=== PATIENT | female | born 1940 | race Caucasian/White ===

== ENCOUNTER 2019-04-18 08:41 | Inpatient (IN) ==
[2019-04-18 09:41] LABS: BASO# 0.02 X1000 (0.0-0.2); BASO% 0.3 % (0.0-0.8); EOS# 0.06 X1000 (0.0-0.7); HEMATOCRIT 38.1 % (37.0-47.0); HEMOGLOBIN 12.1 g/dL (12.0-16.0); IMM GRAN# 0.01 X1000 (0.0-0.04); IMM GRAN% 0.2 % (0.0-0.5); LYMPH# 1.14 X1000 (1.2-3.4); LYMPH% 18.2 % (20.5-51.1); MCHC 31.8 g/dL (33-37); MCV 103.8 FL (81-99); MONO# 0.98 X1000 (0.11-0.59); MONO% 15.6 % (1.7-9.3); MPV 11.5 FL (7.4-10.4); NEUT# 4.06 X1000 (1.4-6.5); NEUT% 64.7 % (42.2-75.2); PLT 127 X1000 (130-400); RBC 3.67 XMIL (4.2-5.4); RDW 13.5 % (11.5-14.5); WBC 6.27 X1000 (4.8-10.8)
--- NOTE | 2019-04-18 09:55 | EKG Report ---
Test Performed on : 04/18/2019 09:37:46 AM Test Reason : weakness Blood Pressure : / mmHG Vent. Rate : 077 BPM Atrial Rate : 077 BPM P-R Int : 164 ms QRS Dur : 080 ms QT Int : 424 ms P-R-T Axes : 028 014 052 degrees QTc Int : 479 ms Normal sinus rhythm. Normal ECG When compared with ECG of 31-JAN-2019 11:00, No significant change was found Unconfirmed Result
[2019-04-18 10:01] LABS: AGAP 10; ALBUMIN 3.6 g/dL (3.5-5.0); ALKALINE PHOSPHATASE 77 U/L (32-104); BUN 22 mg/dL (8-22); CALCIUM 8.2 mg/dL (8.8-10.2); CHLORIDE 100 mmol/L (98-107); COSMO 285; CREATININE 0.6 mg/dL (0.5-0.9); ESTIMATED GFR > 60; GLUCOSE 100 mg/dL (70-104); GOT 13 U/L (10-30); GPT 9 U/L (10-36); POTASSIUM 3.9 mmol/L (3.5-5.1); SODIUM 141 mmol/L (136-145); TCO2 32 mmol/L (25-35); TOTAL PROTEIN 6.3 g/dL (6.3-8.3)
[2019-04-18 10:50] LABS: FREE T4 1.43 ng/dL (0.93-1.70); TSH 1.79 uIUmL (0.27-4.20)
--- NOTE | 2019-04-18 10:52 | Diag Imaging Result Doc PS360 ---
EXAM: CHEST-2 VIEWS HISTORY: sob TECHNIQUE: Chest two views COMPARISON: 03/22/2019 FINDINGS: Poor inspiratory effort. The heart is enlarged. There is a small left pleural effusion. There are basilar infiltrates. Cement within several thoracic and lumbar vertebra. IMPRESSION: Cardiomegaly with a left pleural effusion and left basilar infiltrates. Electronically signed by Phuc Moncada 04/18/2019 10:50 AM
--- NOTE | 2019-04-18 10:58 | PROVIDER DOCUMENTATION ---
HPI-General Adult - General Chief Complaint: Cold Symptoms Stated Complaint: COLD SX Time Seen by Provider: 04/18/19 09:03 Source: patient Allergies/Adverse Reactions: Patient Allergies Allergy/AdvReac Type Severity Reaction Status Date / Time tuberculin,PPD,multi-puncture Allergy ANAPHYLAXIS Verified 08/02/17 13:03 Home Medications: Home Medication List Medication Instructions Recorded Confirmed Last Taken Type Divalproex Sodium 500 mg PO BID 01/31/19 03/20/19 Unknown History Levothyroxine [Synthroid] 88 microgm PO DAILY 01/31/19 03/20/19 Unknown History Lorazepam 1 mg PO BID 01/31/19 03/20/19 Unknown History Omeprazole 20 mg PO BID 01/31/19 03/20/19 Unknown History PRAVAstatin [Pravachol] 80 mg PO DAILY 01/31/19 03/20/19 Unknown History Acetaminophen 650 mg PO Q6H PRN PRN 03/20/19 03/20/19 Unknown History Citalopram [Celexa] 20 mg PO DAILY 03/20/19 03/20/19 Unknown History Donepezil [Aricept] 5 mg PO DAILY 03/20/19 03/20/19 Unknown History Lactulose 15 ml PO DAILY 03/20/19 03/20/19 Unknown History Loratadine 10 mg PO DAILY PRN 03/20/19 03/20/19 Unknown History Memantine [Namenda] 5 mg PO BID 03/20/19 03/20/19 Unknown History Olanzapine 10 mg PO BID 03/20/19 03/20/19 Unknown History Potassium Chloride 10 meq PO DAILY 03/20/19 03/20/19 Unknown History Tolterodine Tartrate [Tolterodine 4 g PO DAILY 03/20/19 03/20/19 Unknown History Tartrate ER] Albuterol Sulfate Inhaler 2 puff INH TID #1 inhaler 03/22/19 Unknown Rx [Ventolin Hfa] Azithromycin 250 mg PO DAILY #4 tab 03/22/19 Unknown Rx Cefpodoxime Proxetil 200 mg PO BID #14 tab 03/22/19 Unknown Rx - History of Present Illness -Gen Adult Nature of Presenting Problems: [id number] presents to the ER from a retirement with generalized malaise, facial swelling , generalized swelling and SOB. The retirement workers state she has been declining all week. They do not report fever but report chills. They state the facial swelling began to occur on Sunday. They report the worsening SOB began yesterday so they took her to her primary MD. He did a chest film but no results have been reported yet. No labs were done. Location of Pain/Injury: reports: face (left side facial pain, jaw and ear pain) , chest (SOB), generalized (edema) Quality of Pain: reports: aching Severity: reports: mild Onset/Duration: reports: 1 week ago Associated Symptoms: reports: cough, fatigue, malaise, shortness of breath Similar Symptoms Previously?: No Recently seen or treated by another doctor?: Yes Review of Systems - Adult - REVIEW OF SYSTEMS - ADULT Constitutional: reports: see HPI, chills, fatique Eyes: reports: see HPI, other (left orbital edema) Ears, Nose, Mouth & Throat: reports: no symptoms reported, ear pain (left ear pain and swelling) Cardiovascular: reports: see HPI, edema (pedal edema) Respiratory: reports: see HPI, cough (dry cough), dyspnea on exertion, shortness of breath Gastrointestinal: reports: no symptoms reported. denies: abdominal pain, diarrh ea, nausea, vomiting Genitourinary: reports: no symptoms reported Musculoskeletal: reports: no symptoms reported Integumentary: reports: no symptoms reported Neurological: reports: no symptoms reported Psychiatric: reports: no symptoms reported Endocrine: reports: no symptoms reported Hematologic/Lymphatic: reports: no symptoms reported Allergic/Immunologic: reports: no symptoms reported All Other Systems: Reviewed and Negative Past History - Adult - PAST MEDICAL HISTORY-ADULT Review of Records: reports: Old Records Reviewed, Nursing Assessment Review, Medications Reviewed, Social history reviewed & non-contributory. Major Childhood Illnesses: reports: denies history Cardiovascular: reports: HTN Respiratory: reports: denies history Gastrointestinal: reports: denies history Obstetrical/Gynecological: reports: denies history Genitourinary: reports: dialysis Musculoskeletal: reports: denies history Neurological: reports: Seizures/Epilepsy Psychiatric: reports: bipolar Endocrine/Immune: reports: thyroid disorder Other Conditions: reports: denies history - PRIOR SURGERIES/PROCEDURES Surgical/Procedure History: reports: reviewed, not pertinent - IMMUNIZATION STATUS Childhood Immunizations: See Nurse Assessment Flu Vaccine: See Nurse Assessment - FAMILY HISTORY Family History: reviewed, not pertinent - SOCIAL HISTORY Smoking: denies Substance Use: denies Living Situation: care facility Physical Exam-General - PHYSICAL EXAM-ADULT Initial Vital Signs Reviewed: Yes - CONSTITUTIONAL General Appearance: mild distress, lethargic - EYES Eyes: PERRL/EOMI, other (left orbital edema) - HEAD, EARS, NOSE, MOUTH & THROAT HENMT: normocephalic/atraumatic, moist mucous membranes, dental decay (dental abscess to the lower left molar), maxillary tenderness, other (left auricular edema, otitis externa,) - RESPIRATORY Respiratory: chest non-tender, decreased breath sounds - CARDIOVASCULAR Cardiovascular: normal peripheral pulses, regular rate, rhythm, other (peripheral edema +2). negative: JVD - GASTROINTESTINAL (ABDOMEN) Abdominal Exam: normal bowel sounds, non tender, distended - LYMPHATIC Lymphatic: no adenopathy - MUSCULOSKELETAL Back Exam: normal inspection, no CVA tenderness Extremity: normal range of motion, non-tender, normal gait Peripheral Pulses: radial (R): 2+, radial (L): 2+, dorsalis-pedis (R): 2+, dorsalis-pedis (L): 2+ - SKIN Integumentary: normal color, normal turgor, warm/dry, other (multiple mosquito bite to the face, retirement employees report an outing to the swap 2 days ago) - NEUROLOGIC Neurologic: negative: facial droop, motor weakness - PSYCHIATRIC Psych/Mental Status: normal mood/affect Progress - PLAN OF CARE/RESULTS Progress/Plan/Lab Results: Vital Signs - 8 hr 04/18/19 08:47 Temperature 98.4 F Pulse Rate 81 Respiratory Rate 18 Blood Pressure 112/71 O2 Sat by Pulse Oximetry 93 L Laboratory Results - last 24 hr 04/18/19 04/18/19 04/18/19 09:30 09:30 09:30 WBC 6.27 RBC 3.67 L Hgb 12.1 Hct 38.1 MCV 103.8 H MCH 33.0 H MCHC 31.8 L RDW Std Deviation 13.5 Plt Count 127 L MPV 11.5 H Immature Gran % (Auto) 0.2 Neut % (Auto) 64.7 Lymph % (Auto) 18.2 L Kent % (Auto) 15.6 H Eos % (Auto) 1.0 Baso % (Auto) 0.3 Immature Gran # (Auto) 0.01 Neut # (Auto) 4.06 Lymph # (Auto) 1.14 L Kent # (Auto) 0.98 H Eos # (Auto) 0.06 Baso # (Auto) 0.02 Sodium 141 Potassium 3.9 Chloride 100 Carbon Dioxide 32 Anion Gap 10 BUN 22 Creatinine 0.6 Estimated GFR/1.73 m2 > 60 BUN/Creatinine Ratio 37 Glucose 100 Calculated Osmolality 285 Calcium 8.2 L Phosphorus 4.4 Magnesium Total Bilirubin 0.30 AST 13 ALT 9 L Alkaline Phosphatase 77 Creatine Kinase Troponin T Egk-N-Fohsaugszln Pept Total Protein 6.3 Albumin 3.6 Globulin 3.0 Albumin/Globulin Ratio 1.0 TSH Free T4 04/18/19 04/18/19 04/18/19 09:30 09:30 09:30 WBC RBC Hgb Hct MCV MCH MCHC RDW Std Deviation Plt Count MPV Immature Gran % (Auto) Neut % (Auto) Lymph % (Auto) Kent % (Auto) Eos % (Auto) Baso % (Auto) Immature Gran # (Auto) Neut # (Auto) Lymph # (Auto) Kent # (Auto) Eos # (Auto) Baso # (Auto) Sodium Potassium Chloride Carbon Dioxide Anion Gap BUN Creatinine Estimated GFR/1.73 m2 BUN/Creatinine Ratio Glucose Calculated Osmolality Calcium Phosphorus Magnesium Total Bilirubin AST ALT Alkaline Phosphatase Creatine Kinase 42 Troponin T < 0.010 Pmz-[id number]-Hhwmqnjwkgs Pept 191 Total Protein Albumin Globulin Albumin/Globulin Ratio TSH Free T4 04/18/19 04/18/19 09:30 09:30 WBC RBC Hgb Hct MCV MCH MCHC RDW Std Deviation Plt Count MPV Immature Gran % (Auto) Neut % (Auto) Lymph % (Auto) Kent % (Auto) Eos % (Auto) Baso % (Auto) Immature Gran # (Auto) Neut # (Auto) Lymph # (Auto) Kent # (Auto) Eos # (Auto) Baso # (Auto) Sodium Potassium Chloride Carbon Dioxide Anion Gap BUN Creatinine Estimated GFR/1.73 m2 BUN/Creatinine Ratio Glucose Calculated Osmolality Calcium Phosphorus Magnesium 2.0 Total Bilirubin AST ALT Alkaline Phosphatase Creatine Kinase Troponin T [id number]-Stntgcbnzcz Pept Total Protein Albumin Globulin Albumin/Globulin Ratio TSH 1.79 Free T4 1.43 Orders Category Date Time Status Use ED:PneumoniaAdultSet As Ordered Care 04/18/19 09:20 Active CHEST-2 VIEWS [RAD] Stat Exams 04/18/19 10:14 Completed BLOOD CULTURE [BLDCUL] Stat Lab 04/18/19 09:21 Ordered CBC WITH ELECTRONIC DIFF [HEME] Stat Lab 04/18/19 09:30 Completed CK PROFILE [SP CHEM] Stat Lab 04/18/19 09:30 Completed COMPREHENSIVE METABOLIC PANEL [CHEM] Stat Lab 04/18/19 09:30 Completed FREE T4 Stat Lab 04/18/19 09:30 Completed MAGNESIUM [CHEM] Stat Lab 04/18/19 09:30 Completed PHOSPHORUS [CHEM] Stat Lab 04/18/19 09:30 Completed PRO B-NATRIURETIC PEPTIDE Stat Lab 04/18/19 09:30 Completed TROPONIN T Stat Lab 04/18/19 09:30 Completed TSH Stat Lab 04/18/19 09:30 Completed Generalized Adult Illness >60 Stat Oth 04/18/19 09:20 Ordered Pneumonia (suspected) Stat Oth 04/18/19 09:20 Ordered EKG [EKG] Stat Ther 04/18/19 09:20 Draft Result Diagrams: 04/18/19 09:30 04/18/19 09:30 - EKG 1 Time of EKG reading by physician:: 09:37 EKG Read and Signed by:: Moshe Palma EKG Interpretation (*Must complete 3 of following elements*): Normal Rate: 77 Rhythm: NSR Breeden: normal QRS: normal NE Interval: normal ST Wave: normal - CONSULTS/PCP/HOSPITALIST Notification #1 *Consult/PCP/Hospitalist*: Dr White Time Discussed: 11:08 Reason/Comments: Pneumonia, pulmonary edema, dental abscess Consult Disposition: Admit Departure - Departure Date of Disposition Decision: 04/18/19 Time of Disposition Decision: 11:09 DIAGNOSIS: Abscess, dental, Facial cellulitis LLL pneumonia Qualifiers: Pneumonia type: due to unspecified organism Qualified Code(s): J18.1 - Lobar pneumonia, unspecified organism Disposition: ADMITTED INPATIENT 09 Certified Medical Emergency: Emergent Condition: Critical Additional Freetext Instructions: ED Follow Up Instructions: You have been treated by a care provider in the Emergency Department. These instructions are being provided to you so you can have an understanding of how to care for yourself upon discharge. Upon discharge from the Emergency Department, you are responsible for making arrangements for follow-up care by a physician of your choice. Take all prescribed medications as directed. Return to the Emergency Department immediately for any new or worsening symptoms. You may call the Physician Referral phone number at [phone] to obtain a list of Physicians who are taking new patients. Referrals and Follow-Ups: Richmond Gonzalez MD [Primary Care Provider] - - Critical Care Note This patient required my direct & personal management of CC.: No Attestation - Physician/ BRENNA Attestation Patient care was provided by Advanced Practice Provider:: Yes Advanced Practice Provider:: Mal Schwartz Advanced Practice Provider documentation review:: The Mid-level provider documentation, treatment plan and medical decision making was reviewed by the physician who agrees with all treatment and medical decision making by the MLP. The physician spent face to face time with patient:: Yes (Dr Palma) Advanced Practice Provider documentation review:: Supervising physician onsite and consulted in the evaluation and care of this patient. The physician did have a face to face encounter with the patient.
[2019-04-18] MEDS ORDERED: ZOFRAN IV PRN (13:45)
[2019-04-18] MEDS ORDERED: TYLENOL PO PRN (13:45)
[2019-04-18] MEDS: LEVAQUIN 750 MG/D5W 750 MG/150 ML IVPB IV SCH (15:21)
[2019-04-18] MEDS: NS 1,000 ML IV SCH (15:21)
[2019-04-18] MEDS: DOXYCYCLINE 100 MG in NS 250 ML IV SCH (17:24)
--- NOTE | 2019-04-18 17:44 | HISTORY AND PHYSICAL ---
PRIMARY CARE PHYSICIAN: Dr. Gonzalez. CHIEF COMPLAINT: Shortness of breath, facial swelling, and generalized malaise that began Sunday and has progressively worsened. HISTORY OF PRESENTING ILLNESS: This is a 78-year-old female, who presents to [facility] ER from [facility] alf where she has been noted since Sunday to be having generalized malaise, facial swelling, shortness of breath, chills. She was seen at her primary care physician's office yesterday. They did a chest x-ray, but the results had not been reported, and no labs had been done. She was found to have left orbital edema and a dental abscess to the left lower molar with maxillary tenderness, some left auricular edema and otitis externa. She had peripheral edema x2. Her laboratory data was unremarkable. We did a chest x- ray that showed cardiomegaly with a left pleural effusion and left basilar infiltrate, and so she is being admitted for further evaluation and treatment. PAST MEDICAL HISTORY: Bipolar, dementia in the setting of intellectual disability, hyperlipidemia, hypothyroidism, and unstable bladder. PAST SURGICAL HISTORY: Hernia repair. FAMILY HISTORY: Reviewed and noncontributory. SOCIAL HISTORY: She currently resides at a alf. No tobacco, alcohol, or illicit drug use noted. ALLERGIES: Tuberculin PPD and multipuncture. HOME MEDICATIONS: A current list will need to be obtained, reconciled, reviewed, and restarted as appropriate. We will place an order for Nursing to update and confirm home medications. DIAGNOSTIC STUDIES: Laboratory data showed a white blood cell count of 6.27, hemoglobin 12.1, hematocrit 38.1, platelets 127,000. Sodium 141, potassium 3.9, chloride 100, CO2 of 32, BUN of 22, creatinine 0.6, glucose of 100. Magnesium 2.0. Phosphorus 4.4. Cardiac enzyme was negative. ProBNP of 191. TSH of 1.79, free T4 of 1.43. EKG showed normal sinus rhythm at 77. Chest x-ray: Cardiomegaly with a left pleural effusion and left basilar infiltrate. REVIEW OF SYSTEMS: She denied any fever. She has had some chills, malaise, facial swelling with left orbital edema, shortness of breath. Denied any chest pain. She has also had a nonproductive cough. Denied any abdominal pain, constipation, diarrhea, or burning or hurting with urination. PHYSICAL EXAMINATION: VITAL SIGNS: On arrival she had a temperature of 98.4 degrees, pulse of 81, respirations 18, blood pressure 112/71, saturating 93% on 2 L. GENERAL: This is a 78-year-old female, who is lying in the bed. shelter staff is at the bedside to help answer questions and review ER record. HEMNT: Patient is noted to have left orbital edema, a dental abscess to the left lower molar, maxillary tenderness, left auricular edema and otitis externa. NECK: Normal inspection. Normal range of motion. LUNGS: With decreased breath sounds bilaterally. Equal lung expansion with chest wall movement. HEART: Regular rate and rhythm. No murmurs, rubs, or gallops. Is also noted to have some peripheral edema that is +2. ABDOMEN: Soft, nontender, nondistended. Bowel sounds are present x4 quadrants. MUSCULOSKELETAL: She has 5/5 strength x4 extremities. NEUROLOGICAL: The cranial nerves 2-12 are grossly intact. ASSESSMENT: 1. Left lower lobe pneumonia. 2. Facial cellulitis. 3. A dental abscess. 4. Dementia in the setting of intellectual disability. PLAN: She has been admitted to the medical unit. Placed on O2 and incentive spirometry. We will update and confirm home medications. Place on a regular diet. Place her on doxycycline 100 mg IV q.12 h., Levaquin 750 mg IV q.24 h., normal saline at 75. We will recheck a CBC, BMP in the a.m. and collect a sputum culture, and her blood cultures are pending. Further orders after seen by attending. Dictated by RASHAAD Carbajal for Jean White MD cc: RASHAAD Carbajal MD Dr. Thomas
--- NOTE | 2019-04-18 21:53 | HISTORY AND PHYSICAL ---
ADDENDUM: Patient seen and examined by myself. Full note dictated and discussed with nurse practitioner. The patient is a 78-year-old female who has intellectual impairment, known history of seizures, bipolar, and lives in a alf. I am going to admit her to the hospital, place her on antibiotics for pneumonia. We will attempt to do incentive spirometry if she is able to tolerate this, and we will follow. Further orders as needed. cc: Jean White MD
[2019-04-19] MEDS: DOXYCYCLINE 100 MG in NS 250 ML IV SCH ×2 (05:31→17:49)
[2019-04-19 06:55] LABS: AGAP 11; ALBUMIN 3.4 g/dL (3.5-5.0); ALKALINE PHOSPHATASE 74 U/L (32-104); BUN 17 mg/dL (8-22); CALCIUM 8.7 mg/dL (8.8-10.2); CHLORIDE 101 mmol/L (98-107); COSMO 278; CREATININE 0.5 mg/dL (0.5-0.9); ESTIMATED GFR > 60; GLUCOSE 81 mg/dL (70-104); GOT 19 U/L (10-30); GPT 8 U/L (10-36); POTASSIUM 4.6 mmol/L (3.5-5.1); SODIUM 139 mmol/L (136-145); TCO2 27 mmol/L (25-35); TOTAL PROTEIN 6.4 g/dL (6.3-8.3)
[2019-04-19 08:04] LABS: HEMATOCRIT 40.6 % (37.0-47.0); HEMOGLOBIN 13.4 g/dL (12.0-16.0); MCH 33.7 PG (27-31); MPV 11.8 FL (7.4-10.4); RBC 3.98 XMIL (4.2-5.4); RDW 13.4 % (11.5-14.5); WBC 6.09 X1000 (4.8-10.8)
[2019-04-19] MEDS ORDERED: CLARITIN PO PRN (11:19)
[2019-04-19] MEDS ORDERED: TYLENOL PO PRN (11:19)
[2019-04-19] MEDS: LACTULOSE PO SCH (12:16)
[2019-04-19] MEDS: ZYPREXA PO SCH ×2 (12:17→20:48)
[2019-04-19] MEDS: PRILOSEC PO SCH ×2 (12:17→20:48)
[2019-04-19] MEDS: SYNTHROID PO SCH (12:17)
[2019-04-19] MEDS: NS 1,000 ML IV SCH ×2 (12:17→17:48)
[2019-04-19] MEDS: ARICEPT PO SCH (12:17)
[2019-04-19] MEDS: DEPAKOTE SPRINKLE PO SCH ×2 (12:17→20:47)
[2019-04-19] MEDS: LEVAQUIN 750 MG/D5W 750 MG/150 ML IVPB IV SCH (14:59)
--- NOTE | 2019-04-19 18:15 | PROGRESS NOTE ---
DATE: 04/19/2019 SUBJECTIVE: The patient is calm. She is awake. She is in no distress. OBJECTIVE: Temperature 97.7 degrees, pulse 58, respiratory 18, BP 156/79.General: The patient is awake. She is in no distress. HEENT: Normocephalic. Neck supple. Cardiovascular: Regular rate. Chest: Decreased breath sounds bilaterally but equal. Effort appears to have a large part in this. Abdomen soft, obese, nondistended. Extremities: Moves all extremities. ASSESSMENT: 1. Left lower lobe pneumonia. 2. Facial cellulitis. 3. Dental abscess. 4. Dementia in the setting of intellectual disability. PLAN: We will continue the patient in the hospital, continue antibiotics, symptomatic control. Further orders as needed. cc: Jean White MD
[2019-04-19] MEDS: ATIVAN PO SCH (20:47)
[2019-04-19] MEDS: NAMENDA PO SCH (20:48)
[2019-04-19] MEDS: PRAVACHOL PO SCH (20:48)
[2019-04-20] MEDS: PRILOSEC PO SCH ×2 (06:09→21:45)
[2019-04-20] MEDS: DOXYCYCLINE 100 MG in NS 250 ML IV SCH ×2 (06:09→17:31)
[2019-04-20] MEDS: SYNTHROID PO SCH (06:09)
[2019-04-20] MEDS: NS 1,000 ML IV SCH ×2 (06:09→21:46)
[2019-04-20] MEDS: NAMENDA PO SCH ×2 (09:43→21:43)
[2019-04-20] MEDS: ARICEPT PO SCH (09:43)
[2019-04-20] MEDS: KLOR-CON PO SCH (09:43)
[2019-04-20] MEDS: CELEXA PO SCH (09:43)
[2019-04-20] MEDS: LACTULOSE PO SCH (09:43)
[2019-04-20] MEDS: ATIVAN PO SCH ×2 (09:43→21:43)
[2019-04-20] MEDS: DETROL LA PO SCH (09:43)
[2019-04-20] MEDS: DEPAKOTE SPRINKLE PO SCH ×2 (09:44→21:45)
[2019-04-20] MEDS: ZYPREXA PO SCH ×2 (09:44→21:44)
[2019-04-20 14:37] LABS: BILIRUBIN URINE NEGATIVE (NEGATIVE); BLOOD URINE TRACE (NEGATIVE); GLUCOSE URINE NEGATIVE (NEGATIVE); KETONE URINE NEGATIVE (NEGATIVE); LEUKOCYTES URINE NEGATIVE (NEGATIVE); NITRITE URINE NEGATIVE (NEGATIVE); PH URINE 6.5; PROTEIN URINE NEGATIVE (NEGATIVE); SP GRAVITY URINE 1.005; UROBILINOGEN URINE NORMAL
[2019-04-20 14:38] LABS: CLARITY CLEAR (CLEAR); COLOR YELLOW
[2019-04-20 15:00] LABS: URINE BACTERIA 1+ /HFP; URINE CAST NONE SEEN /LPF; URINE CRYSTAL NONE SEEN /HPF; URINE EPITHELIAL CELLS <10 /HPF (<10); URINE RBC <10 /HPF (<10); URINE WBC <10 /HPF (<10); URINE YEAST NONE SEEN /HPF
[2019-04-20 15:01] LABS: URINE SOURCE CATH
[2019-04-20] MEDS: LEVAQUIN 750 MG/D5W 750 MG/150 ML IVPB IV SCH (15:33)
--- NOTE | 2019-04-20 15:38 | PROGRESS NOTE ---
DATE: 04/20/2019 SUBJECTIVE: Patient appears to be feeling better. The staff deny any new complaints or problems. OBJECTIVE: Vital signs: Temperature 98, pulse 76 to 126 when she was agitated, respiratory 20, BP 125/90. General: Patient is in no current respiratory distress. She is sitting in bed. She is preparing to eat breakfast. HEENT: Normocephalic. Neck: Supple. Cardiovascular: Regular rate. Chest: Clear. Abdomen: Soft. Extremities: Moves all extremities. ASSESSMENT: 1. Left lower lobe pneumonia. 2. Facial cellulitis with dental abscess. 3. Dementia in the setting of intellectual disabilities. PLAN: We will continue supportive care. Continue antibiotics. We will recheck chest x-ray in the a.m. Hopefully home over the next 2 or 3days. cc: Jean White MD MTDD
[2019-04-20] MEDS ORDERED: BLISTEX MEDICATED BERRY LIP BALM TOP PRN (20:57)
[2019-04-20] MEDS: PRAVACHOL PO SCH (21:43)
[2019-04-21] MEDS: DOXYCYCLINE 100 MG in NS 250 ML IV SCH (04:20)
[2019-04-21] MEDS: PRILOSEC PO SCH ×2 (06:21→21:01)
[2019-04-21] MEDS: SYNTHROID PO SCH (06:21)
--- NOTE | 2019-04-21 08:12 | Diag Imaging Result Doc PS360 ---
EXAM: CHEST-PORTABLE HISTORY: hypoxia TECHNIQUE: Chest single view COMPARISON: 04/18/2019 FINDINGS: Poor inspiratory effort. Interval decrease in the size of the left effusion. Basilar infiltrates and atelectasis are less pronounced. The heart remains mildly prominent. IMPRESSION: Mild interval improvement. Electronically signed by Phuc Moncada 04/21/2019 8:10 AM
[2019-04-21] MEDS: CELEXA PO SCH (09:30)
[2019-04-21] MEDS: ARICEPT PO SCH (09:30)
[2019-04-21] MEDS: NAMENDA PO SCH ×2 (09:30→21:00)
[2019-04-21] MEDS: ATIVAN PO SCH ×2 (09:30→21:01)
[2019-04-21] MEDS: DEPAKOTE SPRINKLE PO SCH ×2 (09:31→21:00)
[2019-04-21] MEDS: LACTULOSE PO SCH (09:31)
[2019-04-21] MEDS: ZYPREXA PO SCH ×2 (09:31→21:00)
[2019-04-21] MEDS: KLOR-CON PO SCH (09:31)
[2019-04-21] MEDS: DETROL LA PO SCH (09:31)
[2019-04-21] MEDS: NS 1,000 ML IV SCH (12:30)
[2019-04-21] MEDS: LEVAQUIN 750 MG/D5W 750 MG/150 ML IVPB IV SCH (16:56)
--- NOTE | 2019-04-21 19:08 | PROGRESS NOTE ---
DATE: 04/21/2019 SUBJECTIVE: Patient is nonverbal. The staff notes that she appears to be doing a little bit better. OBJECTIVE: PHYSICAL EXAMINATION: Vital signs: Temperature 98, pulse 76 to 120s, BP stable. General: Patient is awake, alert. She is in no current distress. HEENT: Normocephalic. Neck: Supple. Cardiovascular: Regular rate. Chest: Appears clear although poor effort. Abdomen: Soft, nondistended. Extremities: Moves all extremities. ASSESSMENT: 1. Left lower lobe pneumonia. Her chest x-ray today appears to be slightly improved. Clinically, she appears to be for improving. 2. Dental abscess. 3. Dementia with intellectual disability. PLAN: We are going to attempt to change her to p.o. doxycycline today and hopefully p.o. Levaquin tomorrow. Expect her to be in the hospital 2 more days. Given her intellectual disability, it is difficult to get any subjective data from her. cc: Jean White MD
[2019-04-21] MEDS: DOXYCYCLINE PO SCH (19:42)
[2019-04-21] MEDS: PRAVACHOL PO SCH (21:00)
[2019-04-22] MEDS: NS 1,000 ML IV SCH (03:12)
[2019-04-22] MEDS: PRILOSEC PO SCH ×2 (06:10→20:11)
[2019-04-22] MEDS: SYNTHROID PO SCH (06:10)
[2019-04-22 06:54] LABS: MCH 33.6 PG (27-31); MCHC 33.3 g/dL (33-37); MCV 100.8 FL (81-99); MPV 11.5 FL (7.4-10.4); RBC 3.87 XMIL (4.2-5.4); RDW 13.1 % (11.5-14.5); WBC 7.4 X1000 (4.8-10.8)
[2019-04-22 07:12] LABS: AGAP 9; ALBUMIN 3.6 g/dL (3.5-5.0); ALKALINE PHOSPHATASE 68 U/L (32-104); BUN 12 mg/dL (8-22); CALCIUM 8.6 mg/dL (8.8-10.2); CHLORIDE 101 mmol/L (98-107); COSMO 283; CREATININE 0.5 mg/dL (0.5-0.9); ESTIMATED GFR > 60; GLUCOSE 98 mg/dL (70-104); GOT 19 U/L (10-30); GPT 11 U/L (10-36); POTASSIUM 3.8 mmol/L (3.5-5.1); SODIUM 142 mmol/L (136-145); TCO2 33 mmol/L (25-35); TOTAL PROTEIN 6.6 g/dL (6.3-8.3)
[2019-04-22] MEDS: ARICEPT PO SCH (08:17)
[2019-04-22] MEDS: CELEXA PO SCH (08:17)
[2019-04-22] MEDS: DOXYCYCLINE PO SCH ×2 (08:17→20:11)
[2019-04-22] MEDS: ATIVAN PO SCH ×2 (08:17→20:11)
[2019-04-22] MEDS: NAMENDA PO SCH ×2 (08:17→20:10)
[2019-04-22] MEDS: LEVAQUIN PO SCH (08:17)
[2019-04-22] MEDS: LACTULOSE PO SCH (08:17)
[2019-04-22] MEDS: DETROL LA PO SCH (08:17)
[2019-04-22] MEDS: ZYPREXA PO SCH ×2 (08:17→20:11)
[2019-04-22] MEDS: KLOR-CON PO SCH (08:18)
[2019-04-22] MEDS: DEPAKOTE SPRINKLE PO SCH ×2 (08:18→20:11)
--- NOTE | 2019-04-22 15:45 | PROGRESS NOTE ---
DATE: 04/22/2019 SUBJECTIVE: The patient's IV came out earlier this morning. She clearly does not want an IV restarted. She has become somewhat violent when we have attempted to restart it. The staff denies any knowledge of fevers. Notes her cough is improved. Denies any knowledge of shortness of breath. PHYSICAL EXAMINATION: Vital Signs: Reviewed. Temperature 97.4 degrees, pulse 65, and BP 179/71. General: Patient is currently calm and pleasant. She is in no current respiratory distress. HEENT: Normocephalic. Neck: Supple. Cardiovascular: Regular rate. Chest: Clear. Abdomen: Soft. ASSESSMENT: 1. Left lower lobe pneumonia. A recent chest x-ray is improved. We are going to change her to p.o. doxycycline and p.o. Levaquin today. 2. Dental abscess appears improved. 3. Dementia with severe intellectual disability. PLAN: We will continue patient in the hospital. Continue to follow. Hopefully, she can discharge back to [facility] tomorrow. cc: Jean White MD
[2019-04-22] MEDS: PRAVACHOL PO SCH (20:10)
[2019-04-23] MEDS: PRILOSEC PO SCH ×2 (06:32→20:07)
[2019-04-23] MEDS: SYNTHROID PO SCH (06:33)
[2019-04-23] MEDS: ARICEPT PO SCH (08:46)
[2019-04-23] MEDS: LACTULOSE PO SCH (08:46)
[2019-04-23] MEDS: DETROL LA PO SCH (08:46)
[2019-04-23] MEDS: DEPAKOTE SPRINKLE PO SCH ×2 (08:46→20:07)
[2019-04-23] MEDS: ZYPREXA PO SCH ×2 (08:46→20:07)
[2019-04-23] MEDS: KLOR-CON PO SCH (08:46)
[2019-04-23] MEDS: LEVAQUIN PO SCH (08:46)
[2019-04-23] MEDS: CELEXA PO SCH (08:46)
[2019-04-23] MEDS: ATIVAN PO SCH ×2 (08:46→20:08)
[2019-04-23] MEDS: NAMENDA PO SCH ×2 (08:46→20:07)
[2019-04-23] MEDS: DOXYCYCLINE PO SCH ×2 (08:46→20:07)
--- NOTE | 2019-04-23 12:05 | Diag Imaging Result Doc PS360 ---
CHEST-PORTABLE - 04/23/2019 INDICATION: PNA COMPARISON: 04/21/2019 FINDINGS: Lung volumes remain low. Heart size is top normal. There is some persistent patchy infiltrate or atelectasis in the left lung base. No new infiltrates. IMPRESSION: No change from prior. Electronically signed by Antonio Fraser 04/23/2019 12:03 PM
--- NOTE | 2019-04-23 14:19 | DISCHARGE SUMMARY ---
ADMISSION DATE: 04/18/2019 DISCHARGE DATE: 04/23/2019 DIAGNOSES: 1. Left lower lobe pneumonia. 2. Dental abscess, appears improved. 3. Dementia with severe intellectual disability. 4. Hypothyroid. DIAGNOSTICS: 1. 04/18/2019, chest x-ray revealed cardiomegaly with a left pleural effusion and left basilar infiltrate. 2. 04/21/2019, chest x-ray reveals interval decrease in the size of the left effusion, basilar infiltrates and atelectasis are less pronounced. The heart remains mildly prominent. 3. Chest x-ray 04/23/2019 reveals heart size is top-normal. There is some persistent patchy infiltrate or atelectasis in the left lung base. No new infiltrate. MICROBIOLOGY: Blood cultures x2 revealed no growth after 48 hours. HOSPITAL COURSE: Ms. Raymundo presented to the emergency room with shortness of breath as well as facial swelling. She was found to have left lower lobe pneumonia as well as a dental abscess. Blood cultures were drawn, which ultimately returned no growth. She was initially placed on doxycycline and Levaquin for antibiotic coverage and will be discharged on both oral medications. Chest x-ray has improved. She has remained afebrile and thankfully is ready for discharge. DISCHARGE PHYSICAL EXAM: Vital Signs: Blood pressure is 119/61 with heart rate of 66, respirations 18, temperature 98.3 degrees with O2 saturations 96 to 98% on 2 L nasal cannula. Cardiovascular: Regular rate and rhythm. S1 and S2 appreciated. She has no lower extremity edema. Peripheral pulses are palpable x4 extremities. Pulmonary: Breath sounds are clear with no increased work of breathing noted. Chest rises and falls, symmetrical respiration. Gastrointestinal: Abdomen soft, nondistended with bowel sounds in all 4 quadrants. Skin: Warm and dry. Neurologic: She is alert. Unable to assess her orientation. DISCHARGE MEDICATIONS: 1. Levaquin 500 mg p.o. daily x5 days. 2. Doxycycline 100 mg p.o. b.i.d. x5 days. 3. Tolterodine tartrate 4 mg p.o. daily. 4. Levothyroxine 88 mcg p.o. daily. 5. Pravachol 80 mg p.o. daily. 6. Potassium chloride 10 mEq daily. 7. Omeprazole 20 mg b.i.d. 8. Olanzapine 10 mg p.o. b.i.d. 9. Namenda 5 mg p.o. b.i.d. 10. Lorazepam 1 mg p.o. b.i.d. 11. Loratadine 10 mg p.o. daily. 12. Lactulose 50 mL p.o. daily. 13. Depakote 500 mg p.o. b.i.d. 14. Celexa 20 mg p.o. daily. 15. Aricept 5 mg p.o. daily. FOLLOW UP: Dr. Richmond Gonzalez in 2 weeks. She is to call to be seen sooner or return to the ER for chest pain, syncope, dizziness, any increasing shortness of breath, temperature greater than 101, productive cough, any nausea, vomiting, diarrhea, constipation, black or bloody vomitus or stools or any hematuria, dysuria, frequency, urgency, or for any questions or concerns. She is being discharged home in stable condition. TIME SPENT: This is a greater than 30 minute discharge. cc: Jean White MD
--- NOTE | 2019-04-23 19:16 | PROGRESS NOTE ---
DATE: 04/23/2019 SUBJECTIVE: Patient without new complaints. OBJECTIVE: Vital signs reviewed. Temperature 97.4 degrees, pulse 65, BP 145 to 180 systolic. General: The patient is awake. She is in no distress. HEENT: Normocephalic. Neck is supple. CV: Regular rate. Chest clear. No crackles. No wheezing. Good air movement. Abdomen soft, nondistended. Extremities: Moves all extremities. ASSESSMENT: 1. Pneumonia, improved. X-ray is improving. She is currently on p.o. antibiotics. 2. History of dental abscess. 3. Dementia in the setting of severe intellectual disability. PLAN: The patient currently is stable medically and can transition back to the halfway. She will continue antibiotics for 5 more days. cc: Jean White MD
[2019-04-23] MEDS: PRAVACHOL PO SCH (20:08)
[2019-04-24] MEDS: SYNTHROID PO SCH ×2 (05:30→06:54)
[2019-04-24] MEDS: PRILOSEC PO SCH ×2 (06:55→20:56)
[2019-04-24] MEDS: DETROL LA PO SCH (11:05)
[2019-04-24] MEDS: LEVAQUIN PO SCH (11:05)
[2019-04-24] MEDS: DOXYCYCLINE PO SCH ×2 (11:06→20:58)
[2019-04-24] MEDS: ATIVAN PO SCH ×2 (11:06→20:57)
[2019-04-24] MEDS: DEPAKOTE SPRINKLE PO SCH ×2 (11:06→20:55)
[2019-04-24] MEDS: LACTULOSE PO SCH (11:07)
[2019-04-24] MEDS: CELEXA PO SCH (11:07)
[2019-04-24] MEDS: NAMENDA PO SCH ×2 (11:07→20:57)
[2019-04-24] MEDS: KLOR-CON PO SCH (11:07)
[2019-04-24] MEDS: ARICEPT PO SCH (11:07)
[2019-04-24] MEDS: ZYPREXA PO SCH ×2 (11:07→20:55)
--- NOTE | 2019-04-24 20:07 | PROGRESS NOTE ---
DATE: 04/23/2019 SUBJECTIVE: Patient has no new complaints. PHYSICAL EXAMINATION: Vital Signs: Reviewed. She is afebrile. Pulse 68, blood pressure stable. General: Patient is in no distress. She is awake. She does respond to stimuli. Does not follow commands, but this is her baseline. HEENT: Normocephalic. Neck: Supple. Cardiovascular: Regular rate. Chest: Clear. Abdomen: Soft. Extremities: Moves all extremities. Neurologic: No changes. ASSESSMENT: 1. Pneumonia. Most recent chest x-ray is improved. 2. Dementia fate in the setting of severe intellectual disabilities. PLAN: We will continue patient in the hospital until suitable discharge planning can be obtained. cc: Jean White MD
[2019-04-24] MEDS: PRAVACHOL PO SCH (20:58)
[2019-04-25] MEDS: SYNTHROID PO SCH ×2 (05:51→10:09)
[2019-04-25] MEDS: PRILOSEC PO SCH (07:19)
[2019-04-25] MEDS ORDERED: COZAAR PO SCH (09:00)
[2019-04-25] MEDS: LACTULOSE PO SCH (09:50)
[2019-04-25] MEDS: DETROL LA PO SCH (09:50)
[2019-04-25] MEDS: ARICEPT PO SCH (09:51)
[2019-04-25] MEDS: DEPAKOTE SPRINKLE PO SCH (09:51)
[2019-04-25] MEDS: KLOR-CON PO SCH (09:51)
[2019-04-25] MEDS: ATIVAN PO SCH (09:51)
[2019-04-25] MEDS: ZYPREXA PO SCH (09:51)
[2019-04-25] MEDS: DOXYCYCLINE PO SCH (09:51)
[2019-04-25] MEDS: NAMENDA PO SCH (09:51)
[2019-04-25] MEDS: CELEXA PO SCH (09:51)
[2019-04-25] MEDS: LEVAQUIN PO SCH (09:51)
--- NOTE | 2019-04-25 13:04 | DISCHARGE SUMMARY ---
ADMISSION DATE: 04/18/2019 DISCHARGE DATE: 04/25/2019 ADDENDUM: To the discharge summary that was dictated 04/23/2019. HOSPITAL COURSE: Ms Raymundo was medically stable to be discharged and in fact, she was discharged on April 23 to go back to her [facility] and upon calling [facility], they would not take the patient back because they stated it was too late in the day and in fact, they felt she needed rehab. Therefore, discharge was cancelled and the patient remained in the hospital. Physical Therapy was consulted and Social Work began searching for a bed at rehab. Today, Social Work found a bed at [facility] and thankfully, the patient will be able to be discharged today with transport from the [facility] to [facility]. DISCHARGE MEDICATIONS: 1. Levaquin 500 mg p.o. daily for 3 days. 2. Doxycycline 100 mg p.o. b.i.d. x3 days. 3. Tolterodine tartrate 4 mg p.o. daily. 4. Levothyroxine 88 mcg p.o. daily. 5. Pravachol 80 mg p.o. daily. 6. Potassium chloride 10 mEq daily. 7. Omeprazole 20 mg p.o. daily. 8. Olanzapine 10 mg p.o. b.i.d. 9. Namenda 5 mg p.o. b.i.d. 10. Lorazepam 1 mg p.o. b.i.d. 11. Loratadine 10 mg p.o. daily. 12. Lactulose 50 mL p.o. daily. 13. Depakote 500 mg p.o. b.i.d. 14. Celexa 20 mg p.o. daily. 15. Aricept 5 mg p.o. daily. FOLLOWUP: The patient will need to follow up with her primary care physician, Dr. Richmond Gonzalez, as directed by the facility physician at the time of her discharge. DISCHARGE DISPOSITION: She is being discharged and transferred to [facility] in stable condition with [facility] transport. TIME SPENT: This is a greater than 30 minute discharge. Dictated by RASHAAD Marti for Jean White MD cc: RASHAAD Marti MD Wayne E. Thomas, MD
[2019-04-25 15:38] VITALS: BP 104/49
--- NOTE | 2019-04-25 18:35 | DISCHARGE SUMMARY ---
ADMISSION DATE: 04/18/2019 DISCHARGE DATE: 04/25/2019 ADDENDUM REPORT Patient seen and examined by myself. Full note dictated and discussed with nurse practitioner. Patient presented to the hospital and subsequently diagnosed with pneumonia. Thankfully, she has had a uneventful hospital course. She will transition to rehab. Her blood pressures were elevated. We did add losartan. She will continue a full 7 day treatment of her pneumonia. cc: Jean White MD
[2019-04-25] MEDS ORDERED: DEPAKOTE PO SCH (21:00)
== END 2019-04-25 16:55 | DRG 194 ==
LOC: P.ED 08:41 → P.MEDSURG 14:26
PROVIDERS: ATTEND Family Medicine

== ENCOUNTER 2019-05-26 17:33 | Inpatient (IN) ==
[2019-05-26] MEDS ORDERED: PROTONIX IV ONE (18:43)
[2019-05-26] MEDS ORDERED: SODIUM CHLORIDE 0.9% INJ ONE (18:44)
--- NOTE | 2019-05-26 19:05 | PROVIDER DOCUMENTATION ---
HPI-General Adult - General Chief Complaint: GI Bleed Stated Complaint: VOMITING Time Seen by Provider: 05/26/19 18:42 Source: patient Allergies/Adverse Reactions: Patient Allergies Allergy/AdvReac Type Severity Reaction Status Date / Time tuberculin,PPD,multi-puncture Allergy ANAPHYLAXIS Verified 04/18/19 14:57 Home Medications: Home Medication List Medication Instructions Recorded Confirmed Last Taken Type Divalproex Sodium 500 mg PO BID 01/31/19 05/26/19 04/18/19 History Levothyroxine [Synthroid] 88 microgm PO DAILY 01/31/19 05/26/19 04/18/19 History Omeprazole 20 mg PO BID 01/31/19 05/26/19 04/18/19 History PRAVAstatin [Pravachol] 80 mg PO DAILY 01/31/19 05/26/19 04/18/19 History Acetaminophen 650 mg PO Q6H PRN PRN 03/20/19 05/26/19 Unknown History Citalopram [Celexa] 20 mg PO DAILY 03/20/19 05/26/19 04/18/19 History Donepezil [Aricept] 5 mg PO DAILY 03/20/19 05/26/19 04/18/19 History Lactulose 15 ml PO DAILY 03/20/19 05/26/19 04/18/19 History Loratadine 10 mg PO DAILY PRN 03/20/19 05/26/19 Unknown History Memantine [Namenda] 5 mg PO BID 03/20/19 05/26/19 04/18/19 History Olanzapine 10 mg PO BID 03/20/19 05/26/19 04/18/19 History Potassium Chloride 10 meq PO DAILY 03/20/19 05/26/19 04/18/19 History Tolterodine Tartrate [Tolterodine 4 g PO DAILY 03/20/19 05/26/19 04/18/19 History Tartrate ER] Lorazepam 1 mg PO BID #15 tab 04/25/19 05/26/19 Unknown Rx Loratadine [Claritin] 10 mg PO DAILY 05/26/19 05/26/19 Unknown History Quetiapine Fumarate [Seroquel] 100 mg PO DAILY 05/26/19 05/26/19 Unknown History Risperidone 1 mg PO DAILY 05/26/19 05/26/19 Unknown History - History of Present Illness -Gen Adult Nature of Presenting Problems: 78 YOF PRESENTS FROM LONG TERM FOR BLOOD MIXED IN SOFT STOOL SINCE SUNDAY, BRIGHT RED IN COLOR, GENERALIZED WEAKNESS, BLE SWELLING. THE EMPLOYEE FROM [employer] TER[employer] REPORTS THE PATIENT USUALLY ASSIST WITH DRESSING BUT SINCE SUNDAY HAS BEEN UNABLE. THE PATIENT IS UNABLE TO COMPLETE ROS DUE TO INTELLECTUAL DISABILITY. Location of Pain/Injury: reports: none Pain Radiation: reports: no radiation Quality of Pain: reports: none Severity: reports: mild Onset/Duration: reports: 2 days ago Timing: reports: still present Context/Activities at Onset: reports: none Modifying Factors: improves with: nothing Similar Symptoms Previously?: No Recently seen or treated by another doctor?: No Review of Systems - Adult - REVIEW OF SYSTEMS - ADULT ROS:: ROS per family (PER LONG TERM ASSOCIATE AND PT WHEN WILLING TO VERBALIZE) Constitutional: reports: no symptoms reported. denies: see HPI, chills, fever, fatique, night sweats, weight gain, weight loss, other Eyes: reports: no symptoms reported. denies: see HPI, discharge, dry eyes, decreased vision, blurred vision, double vision, eye pain, redness, other Ears, Nose, Mouth & Throat: reports: no symptoms reported. denies: see HPI, ear discharge, ear pain, hearing loss, tinnitus, epistaxis, sinus problem, nose pain, loose teeth, mouth/dental pain, mouth swelling, hoarseness, throat pain, throat swelling, other Cardiovascular: reports: see HPI, edema. denies: no symptoms reported, chest pain, heart murmur, irregular heart rate, orthopnea, palpitations, poor circulation, PND, syncope, other Respiratory: reports: other (ON HOME O2). denies: no symptoms reported, see HPI, chronic cough, cough, dyspnea on exertion, excessive sputum production, hemoptysis, pleurisy, shortness of breath, wheezing Gastrointestinal: reports: see HPI, rectal bleeding. denies: no symptoms reported, abdominal pain, hematemesis, constipation, diarrhea, difficulty s wallowing, frequent heartburn, nausea, poor appetite, vomiting, other Genitourinary: reports: no symptoms reported. denies: see HPI, dysuria, discharge, frequency, flank pain, frequent UTI's, hematuria, hesitency, incontinence, urinary retention, urgency, other Musculoskeletal: reports: muscle weakness (GENERALIZED). denies: no symptoms reported, see HPI, bone pain, back pain, frequent leg cramps, joint pain, joint swelling, muscle aches, neck pain, other Integumentary: reports: no symptoms reported. denies: see HPI, hives, hair loss, itching, mole changes, nail changes, rash, skin sores/ulcer, skin thickening, other Neurological: reports: no symptoms reported. denies: see HPI, ataxia, d izziness/vertigo, headache/migraines, loss of balance, numbness, paresthesia, seizure, slurred speech, syncope, tremors, other Psychiatric: reports: no symptoms reported. denies: see HPI, anxiety, anti- depressant use, alcohol/drug dependence, depression, emotional problems, insomnia, panic attacks, suicidal thoughts, other Endocrine: reports: no symptoms reported. denies: see HPI, change in skin pigment, excessive sweating, goiter, cold intolerance, heat intolerance, increased hunger, increased thirst, polyuria, other Hematologic/Lymphatic: reports: no symptoms reported. denies: see HPI, blood clots, easy bruising, low blood count, lymphedema, prolonged bleeding, swollen lymph nodes, transfusions, other Allergic/Immunologic: reports: no symptoms reported. denies: see HPI, allergic reactions, allergic rhinitis, asthma, eczema, food allergy, frequent infections, hay fever, hives, positive PPD, urticaria, other Past History - Adult - PAST MEDICAL HISTORY-ADULT Review of Records: reports: Nursing Assessment Review, Social history reviewed & non-contributory. Major Childhood Illnesses: reports: denies history Cardiovascular: reports: HTN Respiratory: reports: denies history Gastrointestinal: reports: denies history Obstetrical/Gynecological: reports: denies history Genitourinary: reports: dialysis Musculoskeletal: reports: denies history Neurological: reports: Seizures/Epilepsy Psychiatric: reports: bipolar Endocrine/Immune: reports: thyroid disorder Other Conditions: reports: denies history - PRIOR SURGERIES/PROCEDURES Surgical/Procedure History: reports: reviewed, not pertinent - IMMUNIZATION STATUS Childhood Immunizations: See Nurse Assessment Flu Vaccine: See Nurse Assessment - FAMILY HISTORY Family History: reviewed, not pertinent Physical Exam-General - PHYSICAL EXAM-ADULT Initial Vital Signs Reviewed: Yes - CONSTITUTIONAL General Appearance: appears well, alert, no apparent distress - EYES Eyes: PERRL/EOMI, pink conjunctivae - HEAD, EARS, NOSE, MOUTH & THROAT HENMT: normocephalic/atraumatic, moist mucous membranes, normal ENT inspection - NECK Neck: non-tender, full range of motion, supple - RESPIRATORY Respiratory: chest non-tender, no respiratory distress, no accessory muscle use, other (DIMINISHED BS BILATERALLY, PT WEARS O2 AT HOME) - CARDIOVASCULAR Cardiovascular: normal peripheral pulses, regular rate, rhythm, no gallop. negative: no edema (BLE EDEMA +2) - GASTROINTESTINAL (ABDOMEN) Abdominal Exam: normal bowel sounds, non tender, soft - LYMPHATIC Lymphatic: no adenopathy - MUSCULOSKELETAL Back Exam: normal inspection, no CVA tenderness, no vertebral tenderness Extremity: normal range of motion, non-tender, normal gait - SKIN Integumentary: normal color, normal turgor, warm/dry - NEUROLOGIC Neurologic: grossly normal - PSYCHIATRIC Psych/Mental Status: disheveled Progress - PLAN OF CARE/RESULTS Progress/Plan/Lab Results: Vital Signs - 8 hr 05/26/19 18:14 Temperature 98.0 F Pulse Rate 85 Respiratory Rate 17 Blood Pressure 130/81 O2 Sat by Pulse Oximetry 98 Orders Category Date Time Status Saline Loc NOW Care 05/26/19 18:44 Active NPO Diet 05/26/19 18:44 Active CHEST-PORTABLE [RAD] Stat Exams 05/26/19 18:[address] HEAD W/O CONTRAST [CT] Stat Exams 05/26/19 18:59 Ordered CBC WITH ELECTRONIC DIFF [HEME] Stat Lab 05/26/19 18:43 Uncollected COMPREHENSIVE METABOLIC PANEL [CHEM] Stat Lab 05/26/19 18:44 Uncollected OCCULT BLOOD SCREENING [STOOL] Stat Lab 05/26/19 18:44 Uncollected PRO B-NATRIURETIC PEPTIDE Stat Lab 05/26/19 18:59 Uncollected PROTIME WITH INR [COAG] Stat Lab 05/26/19 18:44 Uncollected PTT [COAG] Stat Lab 05/26/19 18:44 Uncollected TYPE & SCREEN [BBK] Stat Lab 05/26/19 18:44 Uncollected Pantoprazole [Protonix] Med 05/26/19 18:43 Discontinued 40 mg IV NOW ONE Sodium Chloride 0.9% Med 05/26/19 18:44 Discontinued 10 ml INJ NOW ONE Result Diagrams: 05/26/19 19:37 05/26/19 19:37 - EKG 1 Time of EKG reading by physician:: 22:04 EKG Read and Signed by:: Claus Andersen EKG Interpretation (*Must complete 3 of following elements*): Normal Rate: 60 Rhythm: NSR [place]: normal QRS: normal HI Interval: normal ST Wave: normal Prior EKG Comparison: no prior EKG - XRAY 1 XRAY Study: Chest Impression: See EMR Report ( CHEST-PORTABLE - 05/26/2019 INDICATION: WEAKNESS (GENERALIZED) COMPARISON: 04/23/2019 FINDINGS: There is mild cardiomegaly. The patient is heavily rotated. No obvious infiltrates. IMPRESSION: Mild cardiomegaly. Electronically signed by Antonio Fraser 05/26/2019 8:24 PM 05/26/192023 Interpreting Physician: Antonio Fraser MD Dictated Date/Time: 05/26/192022 cc: Cheryl Raymundo; Richmond Gonzalez MD) - CT/MRI 1 CT Study: Head Impression: See EMR Report (CT HEAD W/O CONTRAST - 05/26/2019 INDICATION: GENERAL WEAKNESS COMPARISON: 01/31/2019 FINDINGS: There is mild diffuse atrophy. Stable moderate periventricular white matter chronic microvascular disease. No intracranial mass or hemorrhage. The skull is intact. The sinuses, mastoids, and middle ears are clear. IMPRESSION: Atrophy and chronic microvascular disease. No acute process. This exam was performed using automated exposure control, adjustment of mA or kV according to patient size, and/or use of iterative reconstruction technique Electronically signed by Antonio Fraser 05/26/2019 9:19 PM 05/26/192118 Interpreting Physician: Antonio Fraser MD Dictated Date/Time: 05/26/192110 cc: Cheryl Raymundo; Richmond Gonzalez MD) Departure - Departure Date of Disposition Decision: 05/26/19 Time of Disposition Decision: 22:18 DIAGNOSIS: Bilateral lower extremity edema Disposition: ADMITTED INPATIENT 09 Certified Medical Emergency: Emergent Condition: Stable Referrals and Follow-Ups: Richmond Gonzalez MD [Primary Care Provider] - - Critical Care Note This patient required my direct & personal management of CC.: No Attestation - Physician/ BRENNA Attestation Patient care was provided by Advanced Practice Provider:: Yes Advanced Practice Provider:: Cheryl Raymundo Advanced Practice Provider documentation review:: The Mid-level provider documentation, treatment plan and medical decision making was reviewed by the physician who agrees with all treatment and medical decision making by the MLP. The physician spent face to face time with patient:: No Advanced Practice Provider documentation review:: Supervising physician onsite and consulted in the evaluation and care of this patient. The physician did not have a face to face encounter with the patient.
[2019-05-26 20:07] LABS: BASO# 0.01 X1000 (0.0-0.2); BASO% 0.2 % (0.0-0.8); EOS# 0.05 X1000 (0.0-0.7); EOS% 0.9 % (0.0-10.0); HEMOGLOBIN 12.9 g/dL (12.0-16.0); IMM GRAN# 0.03 X1000 (0.0-0.04); IMM GRAN% 0.5 % (0.0-0.5); LYMPH# 1.19 X1000 (1.2-3.4); LYMPH% 21.6 % (20.5-51.1); MCH 34.8 PG (27-31); MCHC 33.9 g/dL (33-37); MCV 102.4 FL (81-99); MONO# 0.98 X1000 (0.11-0.59); MONO% 17.8 % (1.7-9.3); MPV 11.6 FL (7.4-10.4); NEUT# 3.24 X1000 (1.4-6.5); PLT 144 X1000 (130-400); RBC 3.71 XMIL (4.2-5.4); RDW 13.4 % (11.5-14.5)
[2019-05-26 20:10] LABS: INR 1.02; PROTIME 13.5 Seconds (11.0-16.0)
[2019-05-26 20:11] LABS: PTT 41.6 Seconds (22.3-41.8)
[2019-05-26 20:21] LABS: URINE SOURCE CATH
--- NOTE | 2019-05-26 20:26 | Diag Imaging Result Doc PS360 ---
CHEST-PORTABLE - 05/26/2019 INDICATION: WEAKNESS (GENERALIZED) COMPARISON: 04/23/2019 FINDINGS: There is mild cardiomegaly. The patient is heavily rotated. No obvious infiltrates. IMPRESSION: Mild cardiomegaly. Electronically signed by Antonio Fraser 05/26/2019 8:24 PM
[2019-05-26 20:39] LABS: AGAP 14; ALBUMIN 3.6 g/dL (3.5-5.0); BUN 15 mg/dL (8-22); CALCIUM 9.3 mg/dL (8.8-10.2); CHLORIDE 98 mmol/L (98-107); COSMO 284; CREATININE 0.5 mg/dL (0.5-0.9); ESTIMATED GFR > 60; GLUCOSE 94 mg/dL (70-104); SODIUM 142 mmol/L (136-145); TCO2 30 mmol/L (25-35); TOTAL BILIRUBIN 0.47 mg/dL (0.20-1.00); TOTAL PROTEIN 7.3 g/dL (6.3-8.3)
[2019-05-26 20:40] LABS: ALKALINE PHOSPHATASE 68 U/L (32-104); GOT 18 U/L (10-30); GPT 7 U/L (10-36)
[2019-05-26 20:46] LABS: BILIRUBIN URINE NEGATIVE (NEGATIVE); BLOOD URINE NEGATIVE (NEGATIVE); COLOR YELLOW; GLUCOSE URINE NEGATIVE (NEGATIVE); KETONE URINE NEGATIVE (NEGATIVE); LEUKOCYTES URINE NEGATIVE (NEGATIVE); NITRITE URINE NEGATIVE (NEGATIVE); PH URINE 5.5; PROTEIN URINE NEGATIVE (NEGATIVE); SP GRAVITY URINE 1.012; TURBIDITY URINE CLEAR (CLEAR); UROBILINOGEN URINE NORMAL (NORMAL)
[2019-05-26 20:50] LABS: UR EPITHELIAL CELLS <10 /HPF (<10); URINE BACTERIA NEGATIVE /HPF; URINE RBC <10 /HPF (<10); URINE WBC <10 /HPF (<10)
--- NOTE | 2019-05-26 21:21 | Diag Imaging Result Doc PS360 ---
CT HEAD W/O CONTRAST - 05/26/2019 INDICATION: GENERAL WEAKNESS COMPARISON: 01/31/2019 FINDINGS: There is mild diffuse atrophy. Stable moderate periventricular white matter chronic microvascular disease. No intracranial mass or hemorrhage. The skull is intact. The sinuses, mastoids, and middle ears are clear. IMPRESSION: Atrophy and chronic microvascular disease. No acute process. This exam was performed using automated exposure control, adjustment of mA or kV according to patient size, and/or use of iterative reconstruction technique Electronically signed by Antonio Fraser 05/26/2019 9:19 PM
[2019-05-26] MEDS ORDERED: LASIX IV ONE (22:18)
--- NOTE | 2019-05-26 23:43 | EKG Report ---
Test Performed on : 05/26/2019 10:04:08 PM Test Reason : ELEVATED BNP Blood Pressure : / mmHG Vent. Rate : 060 BPM Atrial Rate : 060 BPM P-R Int : 176 ms QRS Dur : 082 ms QT Int : 456 ms P-R-T Axes : 018 027 038 degrees QTc Int : 456 ms Normal sinus rhythm. Normal ECG When compared with ECG of 18-APR-2019 09:37, (Unconfirmed) No significant change was found Unconfirmed Result
[2019-05-27] MEDS ORDERED: ZOFRAN IV PRN (00:14)
[2019-05-27] MEDS ORDERED: LOVENOX SUBQ SCH (00:30)
--- NOTE | 2019-05-27 05:49 | HISTORY AND PHYSICAL ---
PRIMARY CARE PHYSICIAN: Dr. Gonzalez and [facility]. CHIEF COMPLAINT: Leg edema and weakness. HISTORY OF PRESENT ILLNESS: Ms. Raymundo is a 78-year-old female who [facility] She has been noted to be having weakness and some blood mixed in with her stools since Sunday. They have also noticed some bilateral lower extremity edema. The patient has been able to help with dressing herself. She has also been having some shortness of breath. The patient is unable to give history due to her mental illness. The patient has a past medical history of bipolar dementia and severe intellectual disability, hyperlipidemia, hypothyroidism, and stable bladder. The patient was recently in the hospital at [facility] in April of 2019 for some pneumonia and some dental abscess and otitis externa. The patient does at this time deny any chest pain. She does state that she does have some abdominal pain. Abdomen is noted to be tender to palpation. Stool for occult blood was performed in the ER, and is noted to be negative. Laboratory findings in the ER do show a positive D-dimer of 2.33 and elevated proBNP of 2996. Head CT did not show any acute processes. Chest x-ray just showed mild cardiomegaly. The patient was given Lasix in the ER. We have also ordered a CT angiogram and venous Doppler of the bilateral lower extremities. Bilateral lower extremities are noted to have some mild edema that is nonpitting. Caregiver from the [facility] states the patient has not had any cough or congestion. She does have shortness of breath, and she does have to wear her oxygen at night. There are no other symptoms noted. PAST MEDICAL HISTORY: Bipolar, dementia with severe intellectual disability, hyperlipidemia, hypothyroidism, and stable bladder. PAST SURGICAL HISTORY: Hernia repair. FAMILY HISTORY: Noncontributory. SOCIAL HISTORY: Patient resides in a group homes. She denies any tobacco, alcohol, or illicit drug use. ALLERGIES: Tuberculin, PPD and multi puncture. HOME MEDICATIONS: 1. Divalproex sodium 500 mg p.o. b.i.d. 2. Synthroid 88 mcg p.o. daily. 3. Pravachol 80 mg p.o. daily. 4. Omeprazole 20 mg p.o. b.i.d. 5. Cinnamon 650 mg p.o. q.6 hours p.r.n. 6. Celexa 20 mg p.o. daily. 7. Lactulose 15 mL p.o. daily. 8. Loratadine 10 mg p.o. daily p.r.n. 9. Namenda 5 mg p.o. b.i.d. 10. Potassium chloride 10 mEq p.o. daily. 11. Tolterodine tartrate 4 g p.o. daily. 12. Donepezil 5 mg p.o. daily. 13. Olanzapine 10 mg p.o. b.i.d. 14. Lorazepam 1 mg p.o. b.i.d. 15. Seroquel 100 mg p.o. daily. 16. Risperidone 1 mg p.o. daily. LABORATORY AND DIAGNOSTICS: White blood cell count 5.50, red blood cell count 3.71, hemoglobin 12.9, hematocrit 38, MCV 102.4, MCH 34.8, MCHC 33.9, RDW 13.4, and platelet counts 144,000. PT is 13.5, INR is 1.02, PTT is 41.6. D-dimer is 2.33. Sodium is 142, potassium is 5.0, chloride is 98, carbon dioxide 30, anion gap 14, BUN is 15, creatinine is 0.5. GFR greater than 60. Glucose is 94, calcium is 9.3, total bilirubin is 0.47, AST is 8, ALT is 7, alkaline phosphatase is 68. Troponin is less than 0.01. ProBNP is 2996. Urinalysis is negative. Chest x- ray shows mild cardiomegaly. Head CT shows atrophy, and chronic microvascular disease. No acute process. EKG normal sinus rhythm at a rate of 60 beats per minute. REVIEW OF SYSTEMS: A 12 point review of systems has been obtained. All are negative except what is stated above in HPI. PHYSICAL EXAMINATION: VITAL SIGNS: Temperature 98 degrees, pulse rate 85, respiratory rate 17, blood pressure 146/88, O2 saturation 98% on room air, weight 190 pounds, and height 5 feet 8 inches. GENERAL: This is a 78-year-old female. She is lying on the ER stretcher. She is in no acute distress. She is well nourished and well developed. HEENT: Atraumatic, normocephalic. Pupils are equal, round, and reactive to light. Sclerae is anicteric. Mucous membranes are moist. NECK: Supple. No lymphadenopathy. Trachea is midline. No JVD. No thyromegaly or bruits. CARDIOVASCULAR: Regular rate and rhythm. No murmurs, gallops, or rubs appreciated. RESPIRATORY: Lung sounds are clear with equal chest excursion. Respirations are nonlabored. No accessory muscle usage. ABDOMEN: Soft. It is tender to palpation. Nondistended. Bowel sounds are present x4. NEUROLOGIC: The patient is lethargic. She is unable to answer most of my questions. She is not oriented. She is able to move all extremities and follows commands. MUSCULOSKELETAL: Full distal strength noted. No abnormalities. No deformities. EXTREMITIES: No clubbing. No cyanosis. There is bilateral lower leg trace edema noted. DP and PT pulses are present and palpable. SKIN: Warm, dry, and intact. No rashes. No bruises. No diaphoresis. ASSESSMENT AND PLAN: 1. CHF exacerbation. We are going to admit this patient to the PVC unit. The patient does not have a history of CHF. However, proBNP is elevated. She was given a dose of Lasix in the ER. We are going to continue her Lasix IV. I have ordered for her to get a Sanders catheter placed. 2. Bipolar dementia with severe intellectual disability. The patient does live in a [facility]. She does have a caregiver from the [facility] at the bedside with her. We are going to continue all her home medications. The patient is a little lethargic at this time, and she has been having some weakness. We will have the nurse do a bedside swallow to see if she is able to swallow her medications prior to giving them to her. 3. Hypothyroidism. Continue her Synthroid as ordered. 4. Hyperlipidemia. Continue her Pravachol per home dose. 5. Elevated D-dimer. I have ordered her to have a CT angiogram done just to rule out PE. We are also going to have a venous Doppler of her bilateral lower extremities, and rule out DVT's. The patient is oxygen at this present time. She does wear oxygen at home. She does not appear to be in any more shortness of breath. However, she is having some weakness. 6. GI prophylaxis. Patient is on Prilosec at home. I am going to continue those doses. 7. Deep venous thrombosis prophylaxis. I am going to hold off on any blood thinners at this time. The patient is having some blood in her stools as reported by the [facility] nurse. We are going to also await the results from the CT angiogram and ultrasound venous Doppler's before ordering any other treatment. We are going to admit her to the PVC unit, and place her on monitoring analyst. We have restarted several of her home medications. We are starting her on Lasix b.i.d. I have ordered an echocardiogram for in the morning. I have ordered a CT angiogram to rule out PE and venous Doppler studies to rule out deep venous thrombosis. I have repeated her labs for in the morning. All other further treatment pending hospital course and lab data. Dictated by RASHAAD Myers for Samuel De La Torre MD I have performed a face to face diagnostic evaluation. Labs/ Xrays- reviewed. Exam- Chest- rales, CV- regular. A/P- CHF exacberation- Admit, diuresis with Lasix, Cardiology consult. Santana De La Torre cc: Samuel De La Torre MD MTDD
--- NOTE | 2019-05-27 07:47 | Diag Imaging Result Doc PS360 ---
EXAM: CT ANGIOGRM PULMONARY ARTERIES 05/27/2019 HISTORY: R/O PE, positive D-dimer, dyspnea, LL edema TECHNIQUE: This exam was performed using automated exposure control, adjustment of mA or kV according to patient size, and/or use of iterative reconstruction technique. COMMENT: There is a large hiatal hernia. There are no filling defects in the pulmonary arteries. The aorta is not distended or dissected. There is a small left pleural effusion. There is no evidence of pneumothorax. There is some mucus in the upper esophagus. There is a 2.4 cm nodule in the left thyroid lobe. There are atelectatic changes in the left lower lobe. There is what appears to be some flash filling of a lesion in the posterior right hepatic lobe which may represent a cavernous hemangioma. There are degenerative changes in the cervical and thoracic spine. There has been kyphoplasty at T7 and T12 there is cholelithiasis with multiple cholesterol stones measuring over a centimeter in size. There is apparent bilateral hydronephrosis. IMPRESSION: No evidence of pulmonary emboli. Left lower lobe atelectasis. Left pleural effusion. Cholelithiasis. Bilateral hydronephrosis of uncertain etiology. Other nonacute findings as described above. Electronically signed by Fernando Fuentes 05/27/2019 7:44 AM
[2019-05-27] MEDS: SEROQUEL PO SCH (10:39)
[2019-05-27] MEDS: ARICEPT PO SCH (10:39)
[2019-05-27] MEDS: DEPAKOTE SPRINKLE PO SCH ×2 (10:39→21:46)
[2019-05-27] MEDS: CLARITIN PO SCH (10:39)
[2019-05-27] MEDS: PRILOSEC PO SCH ×2 (10:39→21:46)
[2019-05-27] MEDS: NAMENDA PO SCH ×2 (10:39→21:46)
[2019-05-27] MEDS: CELEXA PO SCH (10:39)
[2019-05-27] MEDS: PRAVACHOL PO SCH (10:39)
[2019-05-27] MEDS: ATIVAN PO SCH ×2 (10:39→21:46)
[2019-05-27] MEDS: ZYPREXA PO SCH ×2 (10:39→21:46)
[2019-05-27] MEDS: SYNTHROID PO SCH (10:39)
[2019-05-27] MEDS: RISPERDAL PO SCH (10:39)
[2019-05-27] MEDS: LACTULOSE PO SCH (10:40)
[2019-05-27] MEDS: LASIX IV SCH ×2 (10:40→21:46)
--- NOTE | 2019-05-27 18:19 | ECHO REPORT ---
ORDER DATE: 05/27/2019 INTERPRETING PHYSICIAN: Dr. Carlton CLINICAL INDICATIONS: CHF, new onset. Stroke. Edema. M-MODE MEASUREMENTS: Left ventricle end diastole: Could not be measured. Left ventricle end systole: Could not be measured. Septal wall thickness: Appears to be in the order of 1.7 to 1.9 cm, indicating that this patient may have possibly severe concentric LVH. Other limon: Could not be measured. SUMMARY OF 2-DIMENSIONAL IMAGIN. The left ventricular systolic function appears to be hyperdynamic. Ejection fraction in the order of 90%. 2. The aortic valve appears to be unremarkable. 3. Mitral valve is not well visualized. Color flow mapping appears to be unremarkable. 4. Pulsed wave Doppler of mitral inflow shows reversal of the E and the A ratio. 5. The inferior vena cava is not dilated. 6. The tricuspid valve shows mild degree of regurgitation. 7. Pulmonary pressure appears to be normal. The pulmonic valve is suboptimally visualized, but grossly unremarkable. 8. I do not see evidence of pericardial effusion, mass, and no thrombus. CONCLUSIONS: In summary, this study is really very limited. 1. There is suggestion of possibly severe concentric left ventricular hypertrophy with hyperdynamic left ventricle with ejection fraction of 80% to 90%. 2. "Normal" diastolic function. 3. Unremarkable aortic, mitral, and tricuspid valve. 4. No pericardial effusion. Consider doing a transesophageal echocardiogram in this patient to better evaluate the cardiac structures. cc: Burke Carlton MD
--- NOTE | 2019-05-27 18:53 | PROGRESS NOTE ---
DATE: 05/27/2019 PATIENT'S DOCTOR: Dr. Richmond Gonzalez. HISTORY: She came in with leg weakness and edema. She is a 78-year-old female who presented to the emergency room from the [facility]. She had been noted to have weakness and some blood mixed in her stools since Sunday. Also noticed bilateral lower extremity edema. The patient had been able to help with dressing herself. She also has been having some shortness of breath. The patient was unable to give history because of mental illness. The patient has a past medical history of bipolar dementia and severe intellectual disability, hyperlipidemia, hypothyroidism, and stable bladder. The patient recently in [facility] [place] in 04/2019 for some pneumonia. Had a dental abscess and otitis media externa. The patient did at that time deny any chest pain. Had some abdominal pain. Abdomen noted to be tender on palpitation. Stool and occult blood was performed and noted to be negative. ADMISSION DIAGNOSES: 1. Congestive heart failure exacerbation. 2. Bipolar dementia. 3. Severe intellectual disability. PHYSICAL EXAMINATION TODAY: general: She was resting and sleeping and did not arouse even on examination. vital signs: Temp 97.8 degrees, pulse 62, respirations 15, blood pressure 122/66. heent: Pupils are equal and round. lungs: Lungs are clear in all lung baptiste. Cardiovascular: Regular rhythm and rate without murmur or S3. OUTPUT: Urine output was 3200 mL. ASSESSMENT AND PLAN: 1. Congestive heart failure exacerbation. Admitted the patient to PVC unit. She does have a history of congestive heart failure. Her proBNP is elevated. Given some Lasix and continue her IV Lasix. She has a Sanders catheter in place. 2. Bipolar dementia with severe intellectual disability. Does live in a residential. Has a caregiver that helps. Going to continue all of her home medication. She is a little bit lethargic, and definitely lethargic today on exam. 3. Hypothyroidism on Synthroid. Appears euthyroid. 4. Hyperlipidemia. 5. Elevated D-dimer. 6. Gastrointestinal prophylaxis. 7. Deep venous thrombosis prophylaxis. MEDICATIONS: So looking over her orders, she is on Celexa 20 mg a day, Depakote 500 mg b.i.d., Aricept 5 mg q. day, Lasix 40 mg IV b.i.d., lactulose 15 mg q. day, Synthroid 88 mcg p.o. q. day, Claritin 10 mg a day, Ativan 1 mg b.i.d., Namenda 5 mg b.i.d., Zyprexa 10 mg b.i.d., and Risperdal 1 mg q. day. cc: Jesus Perez MD
[2019-05-28 05:57] LABS: BASO# 0.01 X1000 (0.0-0.2); BASO% 0.2 % (0.0-0.8); EOS# 0.06 X1000 (0.0-0.7); EOS% 1.1 % (0.0-10.0); HEMATOCRIT 41.4 % (37.0-47.0); HEMOGLOBIN 13.5 g/dL (12.0-16.0); IMM GRAN# 0.03 X1000 (0.0-0.04); IMM GRAN% 0.5 % (0.0-0.5); LYMPH# 1.38 X1000 (1.2-3.4); LYMPH% 24.3 % (20.5-51.1); MCH 32.9 PG (27-31); MCHC 32.6 g/dL (33-37); MONO# 0.97 X1000 (0.11-0.59); MONO% 17.1 % (1.7-9.3); MPV 10.8 FL (7.4-10.4); NEUT# 3.23 X1000 (1.4-6.5); NEUT% 56.8 % (42.2-75.2); PLT 168 X1000 (130-400); RDW 13.3 % (11.5-14.5); WBC 5.68 X1000 (4.8-10.8)
[2019-05-28 06:14] LABS: INR 1.03; PROTIME 13.7 Seconds (11.0-16.0)
[2019-05-28 06:33] LABS: AGAP 15; BUN 12 mg/dL (8-22); CALCIUM 9.1 mg/dL (8.8-10.2); CHLORIDE 96 mmol/L (98-107); CK PROFILE 99 U/L (24-173); COSMO 288; CREATININE 0.5 mg/dL (0.5-0.9); ESTIMATED GFR > 60; GLUCOSE 91 mg/dL (70-104); MAGNESIUM 1.7 mg/dL (1.5-2.7); POTASSIUM 3.5 mmol/L (3.5-5.1); SODIUM 145 mmol/L (136-145); TCO2 34 mmol/L (25-35)
--- NOTE | 2019-05-28 07:18 | Diag Imaging Result Doc PS360 ---
EXAM: CHEST-PORTABLE 05/28/2019 HISTORY: dyspnea TECHNIQUE: AP portable at 0555 COMMENT: The inspiration is less optimal than on 05/26/2019. Otherwise are has been no significant change. IMPRESSION: Stable chest. Electronically signed by Fernando Fuentes 05/28/2019 7:16 AM
[2019-05-28] MEDS: DUONEB (A & A) INH PRN ×3 (08:19→19:25)
[2019-05-28] MEDS: LACTULOSE PO SCH (09:04)
[2019-05-28] MEDS: ZYPREXA PO SCH ×2 (09:04→20:16)
[2019-05-28] MEDS: ATIVAN PO SCH ×2 (09:04→20:16)
[2019-05-28] MEDS: PRILOSEC PO SCH ×2 (09:05→20:17)
[2019-05-28] MEDS: CELEXA PO SCH (09:05)
[2019-05-28] MEDS: SYNTHROID PO SCH (09:05)
[2019-05-28] MEDS: ARICEPT PO SCH (09:05)
[2019-05-28] MEDS: RISPERDAL PO SCH (09:05)
[2019-05-28] MEDS: SEROQUEL PO SCH (09:05)
[2019-05-28] MEDS: PRAVACHOL PO SCH (09:05)
[2019-05-28] MEDS: CLARITIN PO SCH (09:05)
[2019-05-28] MEDS: NAMENDA PO SCH ×2 (09:05→20:16)
[2019-05-28] MEDS: DEPAKOTE SPRINKLE PO SCH ×2 (09:05→20:17)
[2019-05-28] MEDS: LASIX IV SCH ×2 (09:06→20:16)
--- NOTE | 2019-05-28 11:35 | Extremity Venous Study ---
PROCEDURE NAME: Venous U/S Bilateral Legs - 05/26/2019 UNIT NURSE: Shilpa. REQUESTING PHYSICIAN: Amy Raymundo MD INDICATIONS: Edema of the legs. NOTE: The anaesthetic technician noted the patient is somewhat uncooperative due to underlying illness. FINDINGS: Deep superficial veins of bilateral lower extremities visualized along their course. All vessels appear compressible with forward flow, and no obvious deep or superficial venous thrombus. SUMMARY: No deep or superficial venous thrombosis noted in bilateral lower extremities. cc: Wes Heath MD
--- NOTE | 2019-05-28 16:08 | PROGRESS NOTE ---
DATE: 05/28/2019 SUBJECTIVE: Ms. Raymundo is breathing much better. It feels like she can she can get a deeper breath at this point. OBJECTIVE: Vital Signs: Temperature 97.7 degrees, pulse 75, respirations 15, blood pressure 119/53. Eyes: Pupils are equal and round. Lungs: Clear in all lung baptiste. Cardiovascular exam: Regular rhythm and rate without murmur or S3. : Urine output is 2100 mL. X-RAYS: Chest x-ray: Stable chest. Inspiration is less optimal than 05/26/2019. ASSESSMENT: 1. Congestive heart failure exacerbation. Admitted to the PVC unit having history of congestive heart failure. ProBNP was elevated. Gave some Lasix and continued intravenous Lasix. She had improvement. Has a Sanders catheter placed. 2. Bipolar dementia, severe intellectual disability. Does live in a skilled nursing. She is eating very well and ate everything on her plate. 3. Hypothyroidism on Synthroid. Appears euthyroid. 4. Hyperlipidemia. 5. Elevated D-dimer. 6. Gastrointestinal prophylaxis in place. 7. Deep venous thrombosis prophylaxis in place as well. Note that she had deep venous thrombosis studies, bilateral legs. No deep or superficial venous thrombosis appreciated. 8. Echocardiogram on 05/27 suggested possible severe concentric left ventricular hypertrophy with hyperdynamic left ventricle ejection fraction 80% to 90%. Normal diastolic dysfunction. Unremarkable aortic valve and tricuspid valve. No pericardial effusion. DISCHARGE PLANS: We will continue present treatment. Hopefully can discharge soon. cc: Jesus Perez MD
[2019-05-29] MEDS: DUONEB (A & A) INH PRN ×3 (03:22→16:24)
[2019-05-29] MEDS: SEROQUEL PO SCH (09:11)
[2019-05-29] MEDS: RISPERDAL PO SCH (09:11)
[2019-05-29] MEDS: SYNTHROID PO SCH (09:11)
[2019-05-29] MEDS: ZYPREXA PO SCH ×2 (09:11→20:49)
[2019-05-29] MEDS: PRAVACHOL PO SCH (09:12)
[2019-05-29] MEDS: ARICEPT PO SCH (09:12)
[2019-05-29] MEDS: CELEXA PO SCH (09:12)
[2019-05-29] MEDS: NAMENDA PO SCH ×2 (09:12→20:49)
[2019-05-29] MEDS: CLARITIN PO SCH (09:12)
[2019-05-29] MEDS: PRILOSEC PO SCH ×2 (09:12→20:49)
[2019-05-29] MEDS: LASIX IV SCH ×2 (09:12→20:50)
[2019-05-29] MEDS: DEPAKOTE SPRINKLE PO SCH ×2 (09:12→20:49)
[2019-05-29] MEDS: ATIVAN PO SCH ×2 (09:13→20:49)
[2019-05-29] MEDS: LACTULOSE PO SCH (09:13)
--- NOTE | 2019-05-29 17:53 | PROGRESS NOTE ---
DATE: 05/29/2019 SUBJECTIVE: Ms. Raymundo is sleeping. Yesterday, she ate very well. Breathing comfortably. OBJECTIVE: Remains afebrile, temperature 98.1 degrees, pulse 70, respirations 8 to 15, blood pressure 136/61. Pupils are equal and round. Lungs: Clear in all lung baptiste. Cardiovascular: Regular rhythm and rate without murmur or S3. Abdomen: Soft. Skin: Warm and dry. DIAGNOSTIC DATA: Urine output is 1800 mL. ASSESSMENT AND PLAN: 1. She presented with congestive heart failure exacerbation. Admitted to the PVC unit. History of congestive heart failure. ProBNP was elevated. She had a Sanders catheter placed. She has improved in her breathing status, it looks good. 2. Bipolar dementia, severe intellectual disability. She is eating well, seems to be stable. We will have to talk to family and see if she is where she is at baseline. 3. Hypothyroidism. On Synthroid. She appears to be euthyroid. 4. Hyperlipidemia. 5. Elevated D-dimer. Aware. 6. Gastrointestinal prophylaxis in place. 7. Review of her orders, I do not see any change. Review of her lab, unremarkable. So, hopefully we can [facility]. cc: Jesus Perez MD
--- NOTE | 2019-05-30 07:55 | PROGRESS NOTE ---
DATE: 05/30/2019 SUBJECTIVE: Ms. Raymundo was sleeping, easy to arouse, comfortable, breathing comfortably. OBJECTIVE: Temperature 98.9 degrees, pulse 86, respirations 20, blood pressure 141/73.HEENT: Pupils are equal and round. Lungs: Clear in all lung baptiste. Cardiovascular: Regular rhythm and rate without murmur or S3. Urine output is 3000 mL. ASSESSMENT AND PLAN: 1. Presented with congestive heart failure exacerbation, admitted to PVC unit. History of congestive heart failure. ProBNP was elevated, responded to diuresis. She has a Sanders catheter in place. Breathing status is good. 2. Bipolar dementia, severe intellectual disability. She is eating well, very cooperative and pleasant. 3. Hypothyroidism, on Synthroid. Appears be euthyroid. 4. Hyperlipidemia. 5. Elevated D-dimer, aware. 6. Continue GI prophylaxis. Hope to be able to discharge her soon. She resides in a alf. Looks like her discharge medications will be the present medications here. She is on Depakote 500 mg b.i.d., Celexa 20 mg a day, Lasix, she will take 40 mg p.o. once a day, lactulose 15 mL a day, Synthroid 88 mcg daily, Claritin 10 mg a day, Ativan 1 mg b.i.d., Namenda 10 mg b.i.d., Prilosec 20 mg b.i.d., Pravachol 80 mg a day, Seroquel 100 mg today, and risperidone 1 mg daily. cc: Jesus Perez MD
[2019-05-30] MEDS: DEPAKOTE SPRINKLE PO SCH ×2 (08:54→22:16)
[2019-05-30] MEDS: ZYPREXA PO SCH ×2 (08:54→22:16)
[2019-05-30] MEDS: LASIX IV SCH ×2 (08:54→22:15)
[2019-05-30] MEDS: SYNTHROID PO SCH (08:54)
[2019-05-30] MEDS: SEROQUEL PO SCH (08:54)
[2019-05-30] MEDS: LACTULOSE PO SCH (08:54)
[2019-05-30] MEDS: PRAVACHOL PO SCH (08:58)
[2019-05-30] MEDS: NAMENDA PO SCH ×2 (08:58→22:16)
[2019-05-30] MEDS: RISPERDAL PO SCH (08:58)
[2019-05-30] MEDS: ATIVAN PO SCH ×2 (08:58→22:16)
[2019-05-30] MEDS: PRILOSEC PO SCH ×2 (08:58→22:16)
[2019-05-30] MEDS: CELEXA PO SCH (08:58)
[2019-05-30] MEDS: CLARITIN PO SCH (08:58)
[2019-05-30] MEDS: ARICEPT PO SCH (08:58)
[2019-05-30] MEDS: DUONEB (A & A) INH PRN (20:10)
[2019-05-31] MEDS: DEPAKOTE SPRINKLE PO SCH ×2 (08:27→20:54)
[2019-05-31] MEDS: SYNTHROID PO SCH (08:28)
[2019-05-31] MEDS: LACTULOSE PO SCH (08:28)
[2019-05-31] MEDS: CELEXA PO SCH (08:28)
[2019-05-31] MEDS: CLARITIN PO SCH (08:28)
[2019-05-31] MEDS: ARICEPT PO SCH (08:28)
[2019-05-31] MEDS: RISPERDAL PO SCH (08:28)
[2019-05-31] MEDS: PRILOSEC PO SCH ×2 (08:28→20:55)
[2019-05-31] MEDS: PRAVACHOL PO SCH (08:28)
[2019-05-31] MEDS: ZYPREXA PO SCH ×2 (08:28→20:54)
[2019-05-31] MEDS: SEROQUEL PO SCH (08:28)
[2019-05-31] MEDS: NAMENDA PO SCH ×2 (08:28→20:54)
[2019-05-31] MEDS: LASIX IV SCH (08:29)
--- NOTE | 2019-05-31 10:06 | PROGRESS NOTE ---
DATE: 05/31/2019 SUBJECTIVE: She is comfortable. She is awake, and she did seem to respond to questions. She has just eaten all of her breakfast. OBJECTIVE: Vital signs: Temp 97.4 degrees, pulse 86, respirations 16, blood pressure 146/68. Weight is 157 pounds. HEENT: Pupils are equal and round. Lungs: Clear in all lung baptiste. Cardiovascular: Regular rhythm and rate without murmur or S3. Abdomen: Soft. Skin: Skin is warm and dry. ASSESSMENT AND PLAN: 1. Presented with congestive heart failure exacerbation. Admitted to a PVC unit. History of congestive heart failure. ProBNP was elevated, responded to diuresis. She has a Sanders catheter in place. Her breathing status looks good. Diuresed well. 2. Bipolar dementia, severe intellectual disability. She seems to be back to baseline, and she appears comfortable and very cooperative. 3. Hypothyroidism. She is on Synthroid. She is euthyroid. 4. Hyperlipidemia. 5. Weak and confined to the bed. REVIEW OF ORDERS: She is on Celexa 20 mg a day, Depakote 500 mg b.i.d., Aricept 5 mg a day, Lasix 40 mg IV twice a day, lactulose 15 mL daily, Synthroid 88 mcg daily, Claritin 10 mg a day, Ativan 1 mg b.i.d., Namenda 5 mg b.i.d., Zyprexa 10 mg b.i.d., Prilosec 20 mg b.i.d., Pravachol 80 mg a day, Seroquel 100 mg daily, Risperdal 1 mg daily. I am going to change her Lasix to p.o., and we will continue physical therapy. She is on a pureed diet. She still has a Sanders catheter in. Hopefully, we can get her out of the hospital in the next couple days. Looking back at her, she is supposed to go to rehab I think before she can go to her [facility], so I think that is the plan. cc: Jesus Perez MD
[2019-05-31] MEDS: ATIVAN PO SCH ×2 (10:28→20:55)
[2019-05-31] MEDS: DUONEB (A & A) INH PRN (20:03)
[2019-05-31] MEDS: LASIX PO SCH (20:55)
[2019-06-01 07:27] LABS: AGAP 13; BUN 36 mg/dL (8-22); CALCIUM 9.6 mg/dL (8.8-10.2); CHLORIDE 93 mmol/L (98-107); COSMO 298; CREATININE 0.7 mg/dL (0.5-0.9); ESTIMATED GFR > 60; GLUCOSE 110 mg/dL (70-104); MAGNESIUM 2.2 mg/dL (1.5-2.7); POTASSIUM 3.2 mmol/L (3.5-5.1); SODIUM 145 mmol/L (136-145); TCO2 39 mmol/L (25-35)
[2019-06-01] MEDS: LACTULOSE PO SCH (09:18)
[2019-06-01] MEDS: PRILOSEC PO SCH ×2 (09:19→21:44)
[2019-06-01] MEDS: NAMENDA PO SCH ×2 (09:19→21:44)
[2019-06-01] MEDS: PRAVACHOL PO SCH (09:19)
[2019-06-01] MEDS: SEROQUEL PO SCH (09:19)
[2019-06-01] MEDS: LASIX PO SCH ×2 (09:19→21:44)
[2019-06-01] MEDS: ZYPREXA PO SCH ×2 (09:19→21:44)
[2019-06-01] MEDS: SYNTHROID PO SCH (09:19)
[2019-06-01] MEDS: DEPAKOTE SPRINKLE PO SCH ×2 (09:19→21:45)
[2019-06-01] MEDS: CLARITIN PO SCH (09:20)
[2019-06-01] MEDS: ATIVAN PO SCH ×2 (09:20→21:43)
[2019-06-01] MEDS: RISPERDAL PO SCH (09:20)
[2019-06-01] MEDS: CELEXA PO SCH (09:20)
[2019-06-01] MEDS: ARICEPT PO SCH (09:20)
--- NOTE | 2019-06-01 09:22 | PROGRESS NOTE ---
DATE: 06/01/2019 SUBJECTIVE: Ms. Raymundo is resting comfortably. She appears comfortable. She ate all of her breakfast. She is lying on her left side, and breathing comfortably. OBJECTIVE: Vital Signs: Temp 98.9 degrees, pulse 80, respirations 17, blood pressure 112/52. HEENT: Pupils are equal and round. Lungs: Clear in all lung baptiste. Cardiovascular: Regular rhythm and rate without murmur or S3. Urine output is 1100 mL. ASSESSMENT AND PLAN: 1. Congestive heart failure exacerbation. Doing much better. Breathing comfortably. 2. Bipolar dementia, severe intellectual disability. Seems to be back at her baseline. She is very cooperative. 3. Hypothyroidism. 4. Hyperlipidemia. 5. General weakness. Confined to the bed. REVIEW OF ORDERS: I do not see any change. Hopefully, she can [facility] to the [facility] tomorrow. cc: Jesus Perez MD
[2019-06-01] MEDS: TYLENOL PO PRN ×2 (21:42→21:48)
[2019-06-02] MEDS: DUONEB (A & A) INH PRN (08:45)
[2019-06-02] MEDS: RISPERDAL PO SCH (09:19)
[2019-06-02] MEDS: PRAVACHOL PO SCH (09:19)
[2019-06-02] MEDS: CLARITIN PO SCH (09:19)
[2019-06-02] MEDS: PRILOSEC PO SCH ×2 (09:19→22:33)
[2019-06-02] MEDS: CELEXA PO SCH (09:20)
[2019-06-02] MEDS: DEPAKOTE SPRINKLE PO SCH ×2 (09:20→22:32)
[2019-06-02] MEDS: SEROQUEL PO SCH (09:20)
[2019-06-02] MEDS: ZYPREXA PO SCH ×2 (09:20→22:32)
[2019-06-02] MEDS: NAMENDA PO SCH ×2 (09:20→22:32)
[2019-06-02] MEDS: ATIVAN PO SCH ×2 (09:20→22:31)
[2019-06-02] MEDS: LASIX PO SCH ×2 (09:20→22:32)
[2019-06-02] MEDS: SYNTHROID PO SCH (09:20)
[2019-06-02] MEDS: ARICEPT PO SCH (09:20)
[2019-06-02] MEDS: LACTULOSE PO SCH (09:21)
--- NOTE | 2019-06-02 10:22 | PROGRESS NOTE ---
DATE: 06/02/2019 SUBJECTIVE: Ms. Raymundo is awake, pleasant. She ate most of her breakfast. She is eating well. The plan is try and get her to rehab before she goes to a intermediate. They are checking on eligibility. OBJECTIVE: Temperature 97.5 degrees, pulse 72, respirations 14, blood pressure 110/59. Pupils are equal and round. Lungs are clear in all lung baptiste. Cardiovascular Examination: Regular rhythm and rate without murmur or S3. Abdomen is soft. Skin is warm and dry. ASSESSMENT AND PLAN: 1. Presented with congestive heart failure, pulmonary venous hypertension, and she has diuresed and done well. Breathing status, cardiovascular status looks good. 2. Bipolar dementia, intellectual disability. Hope to get her eventually back to a intermediate. She has been in the bed for a while so we would like to pursue rehab. 3. Hypothyroidism. 4. Hyperlipidemia. 5. General weakness so continue physical therapy and continue our pursuit for rehab opportunity. LABORATORY DATA: White count is 5680, hematocrit was 41, platelet count 168,000. This was on lab checked on the . Electrolytes checked yesterday, sodium 145, potassium 3.2, chloride 93, BUN 36, creatinine 0.7. cc: Jesus Perez MD
[2019-06-03] MEDS: ATIVAN PO SCH (10:05)
[2019-06-03] MEDS: LACTULOSE PO SCH (10:05)
[2019-06-03] MEDS: DEPAKOTE SPRINKLE PO SCH (10:05)
[2019-06-03] MEDS: NAMENDA PO SCH (10:05)
[2019-06-03] MEDS: CLARITIN PO SCH (10:05)
[2019-06-03] MEDS: SYNTHROID PO SCH (10:05)
[2019-06-03] MEDS: CELEXA PO SCH (10:05)
[2019-06-03] MEDS: LASIX PO SCH (10:06)
[2019-06-03] MEDS: ARICEPT PO SCH (10:06)
[2019-06-03] MEDS: PRAVACHOL PO SCH (10:06)
[2019-06-03] MEDS: PRILOSEC PO SCH (10:06)
[2019-06-03] MEDS: ZYPREXA PO SCH (10:06)
[2019-06-03] MEDS: RISPERDAL PO SCH (10:06)
[2019-06-03] MEDS: SEROQUEL PO SCH (10:07)
[2019-06-03] MEDS ORDERED: KLOR-CON PO ONE (10:18)
--- NOTE | 2019-06-03 11:38 | DISCHARGE SUMMARY ---
ADMISSION DATE: 05/27/2019 DISCHARGE DATE: 06/03/2019 CONSULTATIONS: None. PERTINENT PROCEDURES: 1. Head CT, atrophy and chronic microvascular disease. No acute process. 2. Bilateral venous Doppler showed no deep or superficial venous thrombosis. 3. Echocardiogram, severe concentric LVH with hyperdynamic left ventricle with an EF of 80 to 90 percent, normal diastolic dysfunction. 4. CTA angiogram showed no evidence of PE, lower lobe atelectasis, left pleural effusion, cholelithiasis, bilateral hydronephrosis of uncertain etiology. DISCHARGE DIAGNOSES: 1. Congestive heart failure exacerbation, improved with diuresis. 2. Pulmonary venous hypertension, improved. The patient was treated with diuretics. 3. Bipolar dementia, intellectual disability. The patient is from a half-way. However, she will be going to [facility] in [place] for rehabilitation and then after rehabilitation, she will go back to her half-way. 4. Hypothyroidism. Continue Synthroid. 5. Hyperlipidemia. Continue home medications. 6. Generalized weakness and physical deconditioning. The patient has been working with physical therapy and will be discharged to rehabilitation. 7. Elevated D-dimer. Pulmonary embolism and deep venous thrombosis were ruled out with imaging. HOSPITAL COURSE: Briefly, Ms. Raymundo is a 78-year-old, female who presented to the ED from [facility] for having weakness, bilateral lower extremity edema. The patient had usually been able to dress herself but she was having some noticeable shortness of breath. She was unable to give any history due to her mental illness. She does have a past medical history of bipolar disorder, dementia, and severe intellectual disability, hyperlipidemia, hypothyroidism, who had recently been treated at [facility] in April of 2019 for pneumonia and dental abscess with otitis externa. Workup in the ED showed a positive D-dimer of 2.33 and they did a CTA. They ruled out PE. Bilateral lower extremity Dopplers ruled out DVT. Her head CT did not show any acute process. X-ray showed mild cardiomegaly. She was treated with diuresis. Got an echocardiogram that showed a hyperdynamic function, EF of 80 to 90 percent with pulmonary hypertension. She was diuresed appropriately throughout her admission and was working with physical therapy and they recommended rehab. She has been accepted to [facility] today. VITAL SIGNS: Temperature is 99.4 degrees axillary, heart rate 69, respirations 22, blood pressure 135/67, O2 is 95% on 2 L nasal cannula. DISCHARGE DIET: Pureed with aspiration precautions. DISCHARGE MEDICATIONS: 1. Tylenol 650 mg p.o. q.6 hours p.r.n. 2. Aricept 5 mg p.o. daily. 3. Celexa 20 mg p.o. daily. 4. Claritin 10 mg p.o. daily p.r.n. 5. Depakote 500 mg p.o. b.i.d. 6. Lactulose 15 mL p.o. daily. 7. Namenda 5 mg p.o. b.i.d. 8. Zyprexa 10 mg p.o. b.i.d. 9. Prilosec 20 mg p.o. b.i.d. 10. Potassium chloride 10 mEq p.o. q.a.m. 11. Pravachol 80 mg p.o. daily. 12. Risperidone 1 mg p.o. daily. 13. Seroquel 100 mg p.o. daily. 14. Synthroid 88 mcg p.o. daily. 15. Tolterodine tartrate ER 4 g p.o. daily. 16. Lasix 40 mg p.o. daily. 17. Lorazepam 1 mg p.o. b.i.d. FOLLOWUP: Ms. Raymundo is being discharged to [facility] in [place] to continue with rehab. She will then be discharged back to her half-way. She is take all medications as prescribed. Follow up with her primary PCP, Dr. Richmond Gonzalez. She can return to the ED or call 911 for any worsening of symptoms. Dictated by RASHAAD Low for Hu Hernandez MD cc: MD Richmond Torres MD
[2019-06-03 11:53] VITALS: BP 125/71
--- NOTE | 2019-06-04 06:22 | DISCHARGE SUMMARY ---
ADMISSION DATE: 05/27/2019 DISCHARGE DATE: 06/03/2019 ADDENDUM: Patient awakens, but she still seems somewhat sleepy, but she did take her medications at breakfast this morning. She seems to be doing okay. Her CHF appears to be controlled. Her lungs are clear. Regular rate and rhythm. Her echo incidentally showed a hyperdynamic EF with significant LVH, but no clear diastolic dysfunction. They did recommend a BRITANY, which I guess we did not pursue. The patient is clinically stable, and we will set up a follow-up with Cardiology at discharge. Discharge condition is stable. Medications resolved per alf and orders. We will continue to follow. She is going to inpatient rehab. TIME SPENT: 32 minute discharge. cc: Hu Hernandez MD
== END 2019-06-03 15:45 | DRG 292 ==
LOC: SUPCPDRO → ED 17:33 → SUATTDRO 05-27 00:58 → 2N 05-27 00:58 → 3N 05-30 09:49
PROVIDERS: ATTEND Internal Medicine